=== PATIENT | female | born 1945 | race Caucasian/White ===

== ENCOUNTER 2018-10-17 16:54 | Emergency (ER) | payer OTHER, SELFPAY ==
[2018-10-17 17:05] VITALS: BP 132/81; PULSE 66; RESP 18; TEMP 36.8; O2SAT 99
--- NOTE | 2018-10-17 17:12 | PC.NURSE ---
pt c/o right arm pain. tripped and fell over [employer] bushes. causing injury. pt has lac, controlled bleeding.
--- NOTE | 2018-10-17 17:14 | DI.RAD.S_ITS ---
PROCEDURE: XR SHOULDER RT MIN 2V INDICATIONS: glf, rt wrist/forearm/shoulder pain TECHNIQUE: 2 views of the shoulder were acquired. COMPARISON: [facility], CR, XR CHEST 2 VIEWS, 04/21/2018, 14:01. FINDINGS: Bones: There is bony erosion or prior surgical resection of the distal right clavicle. No acute fracture dislocation. Visualized portions of the ribs are intact. Soft tissues: No suspicious soft tissue calcifications. IMPRESSION: No acute radiographic findings. If pain persists, repeat study in 5-7 days is recommended to exclude occult fracture. Dictated by: Deepthi Marks M.D. on 10/17/2018 at 17:50 Approved by: Deepthi Marks M.D. on 10/17/2018 at 17:51
--- NOTE | 2018-10-17 17:14 | DI.RAD.S_ITS ---
PROCEDURE: XR FOREARM RT 2V INDICATIONS: glf, rt wrist/forearm/shoulder pain TECHNIQUE: 2 views of the forearm were acquired. COMPARISON: None. FINDINGS: Bones: No fractures or dislocations. No suspicious bony lesions. Soft tissues: No suspicious soft tissue calcifications or masses. IMPRESSION: No acute radiographic findings. If pain persists, repeat study in 5-7 days is recommended to exclude occult fracture. Dictated by: Deepthi Marks M.D. on 10/17/2018 at 17:52 Approved by: Deepthi Marks M.D. on 10/17/2018 at 17:52
[2018-10-17] MEDS: ACETAMINOPHEN 325 MG TABLET 975 MG PO (17:44)
[2018-10-17] MEDS: TET,DIPH,PERTUSS(ACELL),VAC/PF 0.5 ML SYRINGE IM (17:44)
--- NOTE | 2018-10-17 17:54 | ED_ITS ---
HPI - Wound/Laceration <KATERINA Melendez - Last Filed: 10/18/18 00:41> General Chief Complaint: Wound/Laceration Stated Complaint: FALL RIGHT ARM INJURY LACERATION Time Seen by Provider: 10/17/18 17:14 Source: patient and family Mode of arrival: ambulatory Limitations: no limitations History of Present Illness HPI narrative: This is a pleasant 73 year female, nonsmoker, presents with spouse with injury to her right arm after fall. Patient reports she tripped over [employer] and fell on right arm. There was flap like laceration on right lateral forearm. She reports discomfort in anterior right shoulder and right forearm. She reports is able to move her right hand and fingers without difficulty and denies tingling or numbness. Patient reports pain increases with movement on her right shoulder. Right dominant hand. Unknown last tetanus immunization. She denies any other injuries including head, neck. Not currently on anticoagulants. Related Data Home Medications Medication Instructions Recorded Confirmed chlorthalidone 25 mg PO QDAY #30 tab 12/12/15 cyclobenzaprine 1 tab PO HSP PRN #0 12/12/15 tamsulosin [Flomax] 0.4 mg PO QAM #0 12/12/15 Previous Rx's Medication Instructions Recorded aspirin 81 mg PO QDAY #30 12/17/15 atenolol 50 mg PO HS #30 12/17/15 oxycodone 5 - 10 mg PO Q3HP PRN #60 tab 12/17/15 enoxaparin [Lovenox] 40 mg SQ QDAY #6 ea 12/19/15 Allergies Allergy/AdvReac Type Severity Reaction Status Date / Time adhesive [ADHESIVE] Allergy Severe CLEAR Verified 10/17/18 17:43 TAPE,DRESSING CAUSES RASH, INFECTION morphine [MORPHINE] AdvReac Severe VOMIT DRY Verified 10/17/18 17:43 HEAVES meperidine [From DEMEROL] AdvReac Intermediate VOMITING Verified 10/17/18 17:43 diazepam [From VALIUM] AdvReac Mild NAUSEA, Verified 10/17/18 17:43 DIARRHEA Review of Systems <KATERINA Melendez - Last Filed: 10/18/18 00:41> Review of Systems Narrative: General: Denies fever, chills, fatigue, malaise, sweats. HEENT: Denies sinus pain, ear pain, sore throat, difficulty swallowing, dizziness. Respiratory: Denies dyspnea, cough, wheezing, hemoptysis, sputum. Cardiovascular: Denies chest pain, palpitations, orthopnea, edema. Gastrointestinal: Denies nausea, vomiting, abdominal pain, diarrhea, constipation, melena. : Denies dysuria, frequency, incontinence, hematuria, urinary retention. Musculoskeletal: See HPI Skin: See HPI Neurologic: Denies weakness, headache, numbness, change in speech, confusion, seizures, incoordination. Psychiatric: No concerning psychosocial issues. 12-point review of systems is negative except for those stated above. PFSH <KATERINA Melendez - Last Filed: 10/18/18 00:41> Medical History Neck pain (Acute) Surgical History H/O cervical spine surgery (Acute) Social History Smoking Status: Never smoker Exam <KATERINA Melendez - Last Filed: 10/18/18 00:41> Narrative Exam Narrative: General appearance: well developed, well nourished, in no acute distress. Head: normocephalic, atraumatic, no scalp lesions, non-tender. Eye: pupil equal, round. EOMI. Nose: nares patent. Oral: mucosa moist. Neck/Thyroid: neck supple, full range of motion, no visible masses. Skin: Flap shape laceration to lateral right forearm without active bleeding. No suspicious rashes, lesions over visible areas. Warm and dry. Heart: no clubbing, no cyanosis, no edema. Lungs: Breathing even and unlabored. No stridor. No accessory muscles used. Chest: normal shape and expansion. Abdomen: non-obese, non-distended. Neurologic: alert and oriented. Cognitive exam, [employer]SEL[employer] and PNS grossly intact on informal exam. Psych: good eye contact, normal affect. Initial Vital Signs Initial Vital Signs: Vital Signs Temperature 98.3 F 10/17/18 17:05 Pulse Rate 66 10/17/18 17:05 Respiratory Rate 18 10/17/18 17:05 Blood Pressure 132/81 10/17/18 17:05 Pulse Oximetry 99 10/17/18 17:05 Extrem Right upper extremity: shoulder/upper arm Details: normal to inspection, tenderness, axillary nerve sensory function normal and abnormal ROM Details: pain with active ROM and pain with passive ROM; no swelling, no crepitus and no deformity, elbow/forearm Details: normal to inspection, tenderness, normal ROM and laceration (Lateral forearm, flap-like, 2.5 cm in each side), wrist Details: normal to inspection, normal ROM and radial pulse present; no tenderness and no swelling and hand Details: normal to inspection, normal capillary refill, neurosensory exam normal, tendon exam normal Location: of all digits and vascular exam Details: radial pulse present and normal capillary refill; no tenderness Left upper extremity: normal to inspection and full ROM Right lower extremity: normal to inspection and full ROM Left lower extremity: normal to inspection and full ROM <Freddy Lindsey DO - Last Filed: 10/25/18 19:16> Initial Vital Signs Initial Vital Signs: Vital Signs Temperature 98.3 F 10/17/18 17:05 Pulse Rate 66 10/17/18 17:05 Respiratory Rate 18 10/17/18 17:05 Blood Pressure 132/81 10/17/18 17:05 Pulse Oximetry 99 10/17/18 17:05 Procedures <KATERINA Melendez - Last Filed: 10/18/18 00:41> Laceration Repair Laceration 1: Site: upper extremity (Right lateral forearm) Side (If applicable): right Size (cm): 5 Description: flap (Triangular shaped) Depth: simple, single layer Local Anesthetic: lidocaine 1% and with bicarb Amount of anesthesia used (mL): 4 Pre-repair: wound explored and irrigated extensively Skin layer closed with: nylon Size (cm): 5-0 Number of sutures: 5 Technique: simple, interrupted Scores <KATERINA Melendez Last Filed: 10/18/18 00:41> GCS Dominga coma scale eye opening: Spontaneous Dominga coma scale verbal response: Orientated Dominga coma scale motor response: Obey commands Dominga coma scale total score: 15 Nexus Score for C-Spine Focal Neurologic deficit present: No Midline spinal tenderness present: No Altered level of conciousness present: No Intoxication present: No Distracting Injury Present: Yes Nexus Criteria for C-spine: 1 Course <KATERINA Melendez - Last Filed: 10/18/18 00:41> Orders Ordered: Discontinued Medications Acetaminophen (Tylenol) 975 mg PO NOW ONE Stop: 10/17/18 17:24 Last Admin: 10/17/18 17:44 Dose: 975 mg Documented by: TARIQ Bacitracin (Bacitracin) 1 applic TOP NOW ONE Stop: 10/17/18 18:25 Last Admin: 10/17/18 18:29 Dose: 1 applic Documented by: CANDIDOAPO Diphtheria/Tetanus/Acell Pertussis (Adacel) 0.5 ml IM .ONCE ONE Stop: 10/17/18 17:17 Last Admin: 10/17/18 17:44 Dose: 0.5 ml Documented by: ÁNGELAO Lidocaine/Sodium Bicarbonate (Buffered Lidocaine 10 Ml Syr) 10 ml INJ NOW ONE Stop: 10/17/18 18:25 Last Admin: 10/17/18 18:29 Dose: 10 ml Documented by: TARIQ Vital Signs Vital signs: Vital Signs - 8 hr 10/17/18 17:05 10/17/18 19:32 Temperature 98.3 F Pulse Rate 66 55 L Respiratory Rate 18 14 Blood Pressure 132/81 113/57 L Pulse Oximetry 99 97 <Freddy Lindsey DO - Last Filed: 10/25/18 19:16> Orders Ordered: Discontinued Medications Acetaminophen (Tylenol) 975 mg PO NOW ONE Stop: 10/17/18 17:24 Last Admin: 10/17/18 17:44 Dose: 975 mg Documented by: TARIQ Bacitracin (Bacitracin) 1 applic TOP NOW ONE Stop: 10/17/18 18:25 Last Admin: 10/17/18 18:29 Dose: 1 applic Documented by: CANDIDOAPO Diphtheria/Tetanus/Acell Pertussis (Adacel) 0.5 ml IM .ONCE ONE Stop: 10/17/18 17:17 Last Admin: 10/17/18 17:44 Dose: 0.5 ml Documented by: ÁNGELAO Lidocaine/Sodium Bicarbonate (Buffered Lidocaine 10 Ml Syr) 10 ml INJ NOW ONE Stop: 10/17/18 18:25 Last Admin: 10/17/18 18:29 Dose: 10 ml Documented by: TARIQ Vital Signs Vital signs: Vital Signs - 8 hr 10/17/18 17:05 10/17/18 19:32 Temperature 98.3 F Pulse Rate 66 55 L Respiratory Rate 18 14 Blood Pressure 132/81 113/57 L Pulse Oximetry 99 97 MDM - Wound/Laceration <Blayne Nataly-KATERINA Vasquez - Last Filed: 10/18/18 00:41> Differential Diagnosis Differential diagnosis: Likely laceration, avulsion of skin and other (contusion of R arm) Medical Records Attestation: I reviewed the patient's medical records. Imaging Data XR Shoulder-RT: Radiologist's impression: [address] [address] XRay Report Signed Patient: Janie Santoyo [facility]#: [id number] : 7Acct:[id number] Age/Sex: 73 / FDate of Service: 10/17/18 Loc: ED Accession Number: [id number] Procedure: XR shoulder RT min 2V Ordering Provider: Freddy Lindsey D.O. PROCEDURE: XR SHOULDER RT MIN 2V INDICATIONS: glf, rt wrist/forearm/shoulder pain TECHNIQUE: 2 views of the shoulder were acquired. COMPARISON: [facility], , XR CHEST 2 VIEWS, 04/21/2018, 14:01. FINDINGS: Bones: There is bony erosion or prior surgical resection of the distal right clavicle. No acute fracture dislocation. Visualized portions of the ribs are intact. Soft tissues: No suspicious soft tissue calcifications. IMPRESSION: No acute radiographic findings. If pain persists, repeat study in 5-7 days is recommended to exclude occult fracture. Dictated by: Deepthi Marks M.D. on 10/17/2018 at 17:50 Approved by: Deepthi Marks M.D. on 10/17/2018 at 17:51 XR- Forearm RT: Radiologist's impression: [address] [address] XRay Report Signed Patient: Janie Santoyo [facility]#: [id number] : 7Acct:[id number] Age/Sex: 73 / FDate of Service: 10/17/18 Loc: ED Accession Number: [id number] Procedure: XR forearm RT 2V Ordering Provider: Freddy Lindsey D.O. PROCEDURE: XR FOREARM RT 2V INDICATIONS: glf, rt wrist/forearm/shoulder pain TECHNIQUE: 2 views of the forearm were acquired. COMPARISON: None. FINDINGS: Bones: No fractures or dislocations. No suspicious bony lesions. Soft tissues: No suspicious soft tissue calcifications or masses. IMPRESSION: No acute radiographic findings. If pain persists, repeat study in 5-7 days is recommended to exclude occult fracture. Dictated by: Deepthi Marks M.D. on 10/17/2018 at 17:52 Approved by: Deepthi Marks M.D. on 10/17/2018 at 17:52 [facility] Narrative Medical decision making narrative: This patient had a mechanical fall sustaining injury to her right arm with a laceration on lateral forearm. Tetanus immunization was updated today. X-ray was done on right shoulder and forearm due to pain on palpation, active range of motion and passive range of motion. X-ray test shows no acute findings including fractures, dislocations, joint effusion. Laceration has repaired by suture. Please see procedural note. Return precautions were discussed with the patient including signs and symptoms for infection. Patient advised to follow with her primary care physician for wound recheck in 2 days. Suture removal in 7-10 days. Patient advised to use RICE therapy and [id number] Tylenol and or Motrin as needed for discomfort and inflammation. No head CT or neck CT was obtained due to patient did not exhibited any neurological deficit, patient denies injury to head or neck. Patient agrees with treatment plan and no further questions were expressed at this time. Discharge Plan Departure Patient Disposition: Home Clinical Impression: Laceration Contusion Qualifiers: Encounter type: initial encounter Contusion area: upper arm Laterality: right Qualified Code(s): S40.021A - Contusion of right upper arm, initial encounter Fall Qualifiers: Encounter type: initial encounter Qualified Code(s): W19.XXXA - Unspecified fall, initial encounter Discharge Date/Time: 10/17/18 19:32 Activity Restrictions/Additional Instructions: You have been diagnosed with [fall, laceration to right forearm, contusion to right shoulder. The x-ray test on right shoulder and forearm were negative and no acute findings such as fracture, dislocation.]. What to do: *Take your medications as directed. You can take [id number] Tylenol and/or Motrin as needed for discomfort and inflammation. You can use ice pack for next couple of days. Please do not get your wound soaked in the water until suture removal. Keep your dressing intact for next 24 hrs. After then, you could remove your dressing, wash with soap and water. Pat dry with clean paper towel and dress it with antibiotic ointment. You can change dressing as needed and daily. Please monitor for signs and symptoms for infection such as increasing redness, swelling, warmth, pain, fever, purulent discharge. If this occurs, please return to ED or follow up with your primary care physician since your wound may be gotten infected. Please follow up with your primary care provider in 2-3 days for recheck wound. Your suture should be removed [ 7-10 ] days. This can be done by your primary provider, walk-in clinic or here in ED. Please keep your wound clean, dry and intact all times. *Follow up with your primary care provider in 2-3 days, call for an appointment. Let them know you were seen in the ED and that we asked you to be seen in follow up. *Return to ED if you have any new, worsening, or concerning symptoms, such as [tingling, numbness, weakness to right arm and signs and symptoms for infection as stated above]. Prescriptions: No Action chlorthalidone 25 MG tablet 25 mg PO QDAY Qty: 30 RF: 0 cyclobenzaprine 5 MG tablet 1 tab PO HSP PRNQty: 0 RF: 0 tamsulosin [Flomax] 0.4 MG capsule,extended release 24hr 0.4 mg PO QAM Qty: 0 RF: 0 aspirin 81 MG tablet,delayed release (DR/EC) 81 mg PO QDAY Qty: 30 RF: 0 atenolol 50 MG tablet 50 mg PO HS Qty: 30 RF: 0 oxycodone 5 MG tablet 5 - 10 mg PO Q3HP PRNQty: 60 RF: 0 enoxaparin [Lovenox] 40 MG/0.4 ML syringe 40 mg SQ QDAY Qty: 6 RF: 0 Referrals: Jeny Baker MD [Primary Care Provider] - <Freddy Lindsey DO - Last Filed: 10/25/18 19:16> Sign Out Provider Sign Out Attestation: I was available for consultation during this patient's emergency department encounter
[2018-10-17] MEDS: LIDO 1%/SOD BICARB 8.4% (10ML) 10 ML SYRINGE INJ (18:29)
[2018-10-17] MEDS: BACITRACIN OINT 0.9 GM PCKT 1 APPLIC TOP (18:29)
[2018-10-17 19:32] VITALS: BP 113/57; PULSE 55; RESP 14; O2SAT 97
== END 2018-10-17 19:32 | disposition home or self-care (01) ==
PROVIDERS: Emergency Provider Nurse Practitioner Family; PCP Family Medicine
DX: S51.811A Laceration without foreign body of right forearm, initial encounter (principal); W01.0XXA Fall on same level from slipping, tripping and stumbling without subsequent striking against object, initial encounter
CPT/HCPCS: 12002; 73030; 73090; 90471; 99283; 90715

== ENCOUNTER → 2019-08-08 13:09 | Outpatient (CLI) | payer OTHER, SELFPAY ==
--- NOTE | 2019-08-08 | DI.MRI.S_ITS ---
PROCEDURE: MR LUMBAR SPINE WO CON INDICATIONS: Low back pain TECHNIQUE: Noncontrast sagittal T1 spin echo and T2 fast echo, sagittal STIR, axial T1 and T2 fast spin echo through the lumbar spine. In cases with scoliosis, additional coronal T2 fast spin echo may be performed. COMPARISON: [facility], , [id number] W PEL IF PERFORMED, 12/15/2015, 14:56. FINDINGS: Image quality: Excellent. Alignment and Curvature: Moderate dextroconvex lumbar scoliosis is seen. There is minimal retrolisthesis seen at L2-L3, L3-L4, L4-L5, and L5-S1. Bone Marrow: Marrow is of normal overall signal. No acute vertebral body compression fractures. Spinal Cord: Conus medullaris terminates at the L1 level. Visualized cord demonstrates normal signal and size. Paraspinous Soft Tissues: No paravertebral masses. This patient has transitional lumbar anatomy. For the purposes of this examination, the level with the last well-developed pair of ribs is considered to be T12. By this numbering scheme, the S1 level is transitional and partially lumbarized. T12-L1: Moderate loss of disc height is seen. Loss of disc signal is seen. Bridging endplate osteophytes are seen. Mild to moderate disc bulge is seen. No significant neural foraminal or central canal narrowing can be seen. L1-L2: Moderate loss of disc height is seen. Loss of disc signal is seen. Mild to moderate disc bulge is seen. At least moderate facet hypertrophy is seen. There is moderate left-sided and mild right-sided neural foraminal narrowing seen. Mild central canal narrowing is seen. L2-L3: Moderate to severe loss of disc height and disc signal are seen. Reactive marrow endplate changes are seen, which are hyperintense on T1-weighted and T2-weighted imaging and most consistent with fatty metaplasia (Modic type II changes). Bridging endplate osteophytes are seen, particularly on the left. Mild facet joint hypertrophy is seen. There is moderate to severe left-sided and mild to moderate right-sided neural foraminal narrowing seen. Moderate central canal narrowing is seen. L3-L4: Moderate to severe loss of disc height and disc signal can be seen on the left. Relatively prominent bridging endplate osteophytes are seen on the left. Moderate facet joint hypertrophy is seen. Moderate bilateral neural foraminal narrowing is seen, left worse than right. Moderate central canal narrowing is seen. L4-L5: Moderate to severe loss of disc height is seen on the left side. Bridging endplate osteophytes are seen on the left. At least moderate facet hypertrophy is seen. There is moderate right-sided and moderate to severe left-sided neural foraminal narrowing seen. There is a compression deformity seen at L4 nerve root. L5-S1: At least moderate loss of disc height is seen on the right. Bridging endplate osteophytes are seen on the right. Moderate to prominent facet hypertrophy is seen. There is at least moderate left-sided and moderate to severe right-sided neural foraminal narrowing seen. There has been removal of portions of the posterior elements, with left hemilaminectomy. The central canal is widely patent. S1-S2: A transitional disc is seen at this level. No significant neural foraminal or central canal narrowing can be seen. IMPRESSION: Dextroconvex scoliosis and multiple levels of relatively prominent degenerative change. Prior left hemilaminectomy change at L5-S1. Transitional lumbar anatomy. Dictated by: Alexandru Taylor M.D. on 08/08/2019 at 15:03 Approved by: Alexandru Taylor M.D. on 08/08/2019 at 15:09
== END ==
PROVIDERS: PCP Family Medicine; Referring Provider Family Medicine; Visit Provider Orthopaedic Surgery
DX: M54.5 Low back pain (principal); M41.86 Other forms of scoliosis, lumbar region
CPT/HCPCS: 72148

== ENCOUNTER → 2020-08-01 13:24 | Outpatient (CLI) | payer OTHER, SELFPAY ==
--- NOTE | 2020-08-01 | DI.MRI.S_ITS ---
PROCEDURE: MR ANKLE LT WO CON INDICATIONS: Achilles tendinitis, left leg TECHNIQUE: Noncontrast sagittal T1 spin echo and T2 fast spin echo with fat saturation, axial proton density fast spin echo and T2 fast spin echo with fat saturation, coronal T1 spin echo and T2 fast spin echo with fat saturation through the ankle/hindfoot. COMPARISON: [facility], CR, XR FOOT 3+ VIEWS LEFT, 09/11/2019, 14:45. FINDINGS: Image quality: Diagnostic. Bones and joints: No bone marrow contusions or fractures. No hindfoot coalitions. No osteochondral lesions of the talar dome. There are degenerative changes in the including mild degeneration along the subtalar joint with subchondral edema and osteophytosis. There is degeneration along the distal tibiofibular syndesmosis with syndesmotic narrowing, subchondral edema, and subchondral cystic changes. Moderate degenerative changes are also demonstrated in the midfoot with osteophytosis, cartilage thinning, and multiple foci of subchondral edema throughout the midfoot. No pathologic joint effusions. There is mild nonspecific periarticular subcutaneous edema. Medial structures: The posterior tibialis, flexor digitorum longus, and flexor hallucis longus tendons are intact. The posterior tibial neurovascular bundle appears normal within the tarsal tunnel, without extrinsic mass effect. The deltoid and spring ligament components appear intact. Lateral structures: The anterior talofibular, calcaneofibular, and posterior talofibular ligaments appear attenuated consistent with sequelae of prior moderate to severe sprains. More superiorly, the anterior and posterior tibiofibular ligaments also appear thickened consistent with sequelae of prior sprains. The intermalleolar ligament appears intact. The tibiofibular syndesmosis demonstrates narrowing with mild osteophytosis consistent with degenerative changes. There is an accessory peroneal tendon consistent with a peroneus quartus tracking posterior to the peroneus brevis along the lateral malleolus and extending medially along the peroneus longus. The insertion is not well visualized on the current study. There is mild tendinopathy of the peroneus longus inferior to the lateral malleolus. A small amount of tenosynovial fluid is demonstrated along the peroneal tendons. Adjacent bony peroneal tubercle and retrotrochlear prominence are normal in size. The sinus tarsi demonstrates effacement of the fatty signal without associated edema cystic change. Findings likely represent sequelae of prior ligamentous sprains. The calcaneonavicular and calcaneocuboid components of the bifurcate ligament appear intact. The dorsal calcaneocuboid ligament appears intact. Anterior structures: The tibialis anterior, extensor hallucis longus, and extensor digitorum longus tendons appear intact. The dorsal talonavicular ligament is attenuated in signal consistent with sequelae of a sprain or chronic degeneration. Posterior and plantar structures: Achilles tendon demonstrates mild tendinosis with mild intrasubstance intermediate signal suggestive of mild interstitial partial tearing. No high-grade tear or tendon rupture. Medial and lateral bands of the plantar fascia are of normal thickness without associated edema. No abductor digiti quinti muscle atrophy to suggest Chua neuropathy. IMPRESSION: 1. Mild tendinosis of the Achilles tendon with suspected mild interstitial partial tearing. No high-grade tear or tendon rupture. 2. Moderate degeneration in the midfoot as well as mild degeneration along the subtalar joint and along the distal tibiofibular syndesmosis. 3. Sequelae of prior sprains of the lateral ankle ligaments as described. 4. Accessory peroneus quartus tendon demonstrated with mild tenosynovitis along the peroneal tendons. Segmental tendinopathy of the peroneus longus also noted inferior to the lateral malleolus. Dictated by: Juaquin Thrasher M.D. on 08/01/2020 at 16:41 Approved by: Juaquin Thrasher M.D. on 08/01/2020 at 16:58
== END ==
PROVIDERS: PCP Nurse Practitioner Family; Referring Provider Orthopaedic Surgery Foot and Ankle Surgery; Visit Provider Orthopaedic Surgery Foot and Ankle Surgery
DX: M76.62 Achilles tendinitis, left leg (principal); M19.072 Primary osteoarthritis, left ankle and foot; M65.872 Other synovitis and tenosynovitis, left ankle and foot
CPT/HCPCS: 73721

== ENCOUNTER → 2020-08-06 10:45 | Outpatient (CLI) | payer OTHER, SELFPAY ==
[2020-08-06 11:22] LABS: Hematocrit 36.9 % (36-46); Hemoglobin 12.4 g/dL (12.0-16.0); Mean Corpuscular HGB Conc 33.6 % (30-36); Mean Corpuscular Hemoglobin 31.4 PG (26-34); Mean Corpuscular Volume 93.7 fL (80-100); Platelet Count 191 X10^3/uL (150-400); Red Blood Cell Count 3.94 X10^6/uL (4.0-5.2); White Blood Cell Count 4.5 X10^3/uL (4.5-11.0)
[2020-08-06 11:34] LABS: Alanine Aminotransferase 22 IU/L (<35); Albumin 4.1 g/dL (3.5-5.0); Albumin Globulin Ratio 1.5 (1.0-2.8); Alkaline Phosphatase 73 U/L (38-126); Aspartate Aminotransferase 28 IU/L (14-36); BUN Creatinine Ratio 29.7 (6-22); Bilirubin Total 0.9 mg/dL (0.2-1.3); Blood Urea Nitrogen 19 mg/dL (7-17); Calcium 9.8 mg/dL (8.4-10.2); Carbon Dioxide 32 mmol/L (22-32); Chloride 103 mmol/L (98-107); Cholesterol 172 mg/dL (140-199); Estimated Glomerular Filt Rate > 60.0 mL/min (>60); Globulin 2.7 g/dL (1.7-4.1); Glucose 110 mg/dL (80-110); HDL Cholesterol 66 mg/dL (40-60); HEMOLYSIS < 15 (0-50); LDL Cholesterol Calculated 88 mg/dL (<100); Potassium 3.9 mmol/L (3.4-5.1); Sodium 140 mmol/L (137-145); Total Protein 6.8 g/dL (6.3-8.2); Triglycerides 90 mg/dL (35-150)
[2020-08-06 12:12] LABS: Free T4, Direct Thyroxine 1.06 ng/dL (0.78-2.19)
[2020-08-06 12:25] LABS: Thyroid Stimulating Hormone 0.319 uIU/mL (0.47-4.68)
== END ==
PROVIDERS: PCP Nurse Practitioner Family; Referring Provider Nurse Practitioner Family; Visit Provider Nurse Practitioner Family
DX: Z00.00 Encounter for general adult medical examination without abnormal findings (principal); I10 Essential (primary) hypertension; E03.9 Hypothyroidism, unspecified; E78.5 Hyperlipidemia, unspecified
CPT/HCPCS: 36415; 80053; 80061; 84439; 84443; 85027

== ENCOUNTER → 2020-11-05 15:16 | Outpatient (CLI) | payer OTHER, SELFPAY ==
[2020-11-05 16:52] LABS: Free T4, Direct Thyroxine 1.02 ng/dL (0.78-2.19)
[2020-11-05 17:06] LABS: Thyroid Stimulating Hormone 0.905 uIU/mL (0.47-4.68)
== END ==
PROVIDERS: PCP Nurse Practitioner Family; Referring Provider Nurse Practitioner Family; Visit Provider Nurse Practitioner Family
DX: E03.9 Hypothyroidism, unspecified (principal)
CPT/HCPCS: 36415; 84439; 84443

== ENCOUNTER → 2020-11-26 15:52 | Outpatient (CLI) | payer OTHER, SELFPAY ==
--- NOTE | 2020-11-26 15:54 | DI.RAD.S_ITS ---
PROCEDURE: XR CERVICAL SPINE 2V OR 3V INDICATIONS: muscle tightness, pain, hx of surgery TECHNIQUE: 3 view(s) of the cervical spine were acquired. COMPARISON: [facility], CR, XR CERVICAL SPIN LAT FL EX 3VW, 10/09/2015, 12:40. FINDINGS: Bones: No fractures or dislocations to the C7-T1 level. The lateral masses of C1 appear intact on the odontoid view. No suspicious bony lesions. Cervical straightening is present. There is cervical fusion from C3 through C7. Multilevel uncovertebral hypertrophy are present. Hardware is intact. Soft tissues: No prevertebral soft tissue swelling. IMPRESSION: Cervical straightening with anterior fusion as above. Dictated by: Steffany Thakur M.D. on 11/26/2020 at 16:54 Approved by: Steffany Thakur M.D. on 11/26/2020 at 16:55
[2020-11-26 16:18] LABS: Hematocrit 38.4 % (36-46); Hemoglobin 12.6 g/dL (12.0-16.0); Mean Corpuscular HGB Conc 32.7 % (30-36); Mean Corpuscular Hemoglobin 30.9 PG (26-34); Mean Corpuscular Volume 94.5 fL (80-100); Platelet Count 206 X10^3/uL (150-400); Red Blood Cell Count 4.06 X10^6/uL (4.0-5.2); Red Cell Distribution Width 14.3 % (11.6-14.8)
[2020-11-26 16:57] LABS: HEMOLYSIS < 15 (0-50)
[2020-11-26 17:05] LABS: Alanine Aminotransferase 19 IU/L (<35); Albumin 4.2 g/dL (3.5-5.0); Albumin Globulin Ratio 1.7 (1.0-2.8); Alkaline Phosphatase 76 U/L (38-126); Aspartate Aminotransferase 25 IU/L (14-36); BUN Creatinine Ratio 16.9 (6-22); Bilirubin Total 1.1 mg/dL (0.2-1.3); Blood Urea Nitrogen 12 mg/dL (7-17); Calcium 10.3 mg/dL (8.4-10.2); Carbon Dioxide 34 mmol/L (22-32); Chloride 100 mmol/L (98-107); Estimated Glomerular Filt Rate > 60.0 mL/min (>60); Globulin 2.5 g/dL (1.7-4.1); Glucose 91 mg/dL (80-110); Potassium 3.9 mmol/L (3.4-5.1); Sodium 139 mmol/L (137-145); Total Protein 6.7 g/dL (6.3-8.2)
[2020-11-26 17:52] LABS: Vitamin B12 Reflex MMA if <400 > 1000 pg/mL (239-931)
== END ==
PROVIDERS: PCP Nurse Practitioner Family; Referring Provider Nurse Practitioner Family; Visit Provider Nurse Practitioner Family
DX: Z00.00 Encounter for general adult medical examination without abnormal findings (principal); M54.2 Cervicalgia; Z98.890 Other specified postprocedural states; R42 Dizziness and giddiness
CPT/HCPCS: 36415; 72040; 80053; 82607; 85027

== ENCOUNTER → 2021-02-11 09:33 | Outpatient (CLI) | payer OTHER, SELFPAY ==
[2021-02-11 10:23] LABS: COVID19 -Nasal RAPID Negative (Negative)
== END ==
PROVIDERS: PCP Nurse Practitioner Family; Visit Provider Surgery
DX: Z01.812 Encounter for preprocedural laboratory examination (principal); Z20.822 Contact with and (suspected) exposure to COVID-19
CPT/HCPCS: 87635; C9803

== ENCOUNTER 2021-02-12 07:29 | Day surgery (SDC) | payer OTHER, SELFPAY ==
--- NOTE | 2021-02-12 | PATH_ITS ---
[facility] Accession Number: [id number] . 01 Material submitted: . colon - TRANSVERSE COLON POLYP . 02 Diagnosis: Transverse Colon Polyp, Biopsy: Sessile serrated adenoma. [facility] 02/17/2021 1627 Local . 02 Electronically signed: . Travis Haider MD, PhD, Pathologist NPI- [id number] . 01 Gross description: . TRANSVERSE COLON POLYP: Received in formalin are 2 fragment(s) of yang, soft tissue measuring 0.2 x 0.1 x 0.1 cm to 0.3 x 0.3 x 0.2 cm submitted entirely in 1 cassette(s) /YUE 02/13/2021 0058 Local . 02 Pathologist provided ICD-10: D12.3 . 02 CPT . 441122 Performed at: 01 [facility] [address] [place] [address], [place], [place] [id number] MD Juaquin Massey MD Phone: [phone] Performed at: 02 [facility] [address] [address] [place], [place] [id number] MD Hayde Monge MD Phone: [phone]
[2021-02-12] MEDS: LACTATED RINGERS 1,000 ML 84 ML IV (07:54)
[2021-02-12 07:57] VITALS: BP 119/76; PULSE 73; RESP 18; TEMP 36.4; O2SAT 98; BMI 34.5
--- NOTE | 2021-02-12 08:37 | PM.HP.1 ---
History of Present Illness History of Present Illness Date Patient Seen: 02/12/21 Time Patient Seen: 08:37 Chief complaint: PAC Narrative: 75-year-old woman who had a colonoscopy 5 years ago with polyps and was told to repeat her colonoscopy this year. Patient History Medical History (Updated 02/12/21 @ 08:39 by Dewayne Quintero MD) AAA (abdominal aortic aneurysm) (~2015) Ankle pain Anxiety Carpal tunnel syndrome Cervical (neck) region somatic dysfunction (1997) Chicken pox Chronic back pain Chronic pain in left foot Colon polyps Dysphagia (10/2020) Foot pain History of urinary incontinence (~2015) Insomnia Intermittent lightheadedness (09/2020) Lower urinary tract symptoms (LUTS) Lumbar back pain with radiculopathy affecting left lower extremity Measles Migraine with aura (1959) Mumps Neck pain Neck pain Osteopenia Peripheral vascular disease Postmenopausal atrophic vaginitis Postmenopausal atrophic vaginitis PTSD (post-traumatic stress disorder) (~2016) Scoliosis Shoulder pain Surgical History Anesthesia H/O cervical spine surgery H/O knee surgery H/O: hysterectomy History of ankle surgery History of appendectomy History of fusion of cervical spine (2015) History of hip surgery Previous back surgery S/P hernia surgery Family & Social History Family History Father History of heart disease Hypertension Mother History of heart disease Hypertension Brother History of heart disease Hypertension Grandfather Stroke Grandfather History of heart disease Social History: household members spouse Tobacco & Substance use: Smoking Status Former smoker alcohol intake current alcohol intake frequency holiday/special occasion Substance Use Type does not use Meds Home Medications and Allergies Home Medications Medication Instructions Recorded Confirmed Type aspirin 81 mg tablet,delayed 81 mg PO QDAY #30 12/17/15 02/12/21 Rx release gabapentin 300 mg capsule 300 mg PO DAILY 10/12/19 02/12/21 History simvastatin 40 mg tablet 40 mg PO DAILY 10/12/19 02/12/21 History cranberry 500 mg capsule 500 mg PO BID 10/17/19 02/12/21 History vitamin B complex (B 1 tab PO DAILY 10/17/19 02/12/21 History Complex-Vitamin B12) diclofenac sodium 1 % topical gel 2 g TOPICAL QID PRN 07/01/20 02/12/21 History sumatriptan succinate 50 mg tablet 50 mg PO ONCE #30 tab 09/17/20 02/12/21 Rx estradiol (Estrace) 1 g VAG 2XW #42.5 gram 11/05/20 02/12/21 Rx atenolol 25 mg tablet 25 mg PO BID #180 tab 01/01/21 02/12/21 Rx chlorthalidone 25 mg tablet 25 mg PO QDAY #90 tab 01/01/21 02/12/21 Rx cyclobenzaprine 5 mg tablet 5 mg PO BID PRN #90 tab 01/01/21 02/12/21 Rx levothyroxine 25 mcg capsule 25 mcg PO DAILY #90 cap 01/01/21 02/12/21 Rx trazodone 50 mg tablet 100 mg PO DAILY #180 tab 01/01/21 02/12/21 Rx Allergies Allergy/AdvReac Type Severity Reaction Status Date / Time adhesive [ADHESIVE] Allergy Severe CLEAR Verified 02/12/21 07:42 TAPE,DRESSING CAUSES RASH, INFECTION morphine [MORPHINE] AdvReac Severe VOMIT DRY Verified 02/12/21 07:42 HEAVES meperidine [From DEMEROL] AdvReac Intermediate VOMITING Verified 02/12/21 07:42 diazepam [From VALIUM] AdvReac Mild NAUSEA, Verified 02/12/21 07:42 DIARRHEA Exam Vital Signs (past 8 hours): - 02/12/21 07:57 Temperature 97.5 F L Pulse Rate 73 Respiratory Rate 18 Blood Pressure 119/76 Pulse Oximetry 98 Oxygen Delivery Method Room Air Const General: comfortable Eyes General: appearance normal, both eyes and all related structures Resp Effort & Inspection: normal respiratory effort Assessment & Plan Assessment and plan (1) History of colon polyps: Status: Acute Plan She took her prep appropriately. She is aware the risks and benefits. She would like to proceed. Time Spent With Patient Critical Care time: I spent a total of [] minutes of critical care time on this patient's care today; this time is exclusive of procedural time.
[2021-02-12] MEDS: fentaNYL 250 MCG/5 ML INJ IV (09:16)
[2021-02-12] MEDS: MIDAZOLAM 5 MG/5 ML VIAL IV (09:46)
--- NOTE | 2021-02-12 09:57 | PM.OP.COLON ---
Operative Date/Time/Diagnoses Date of procedure: 02/12/21 Time of procedure: 10:01 Pre-op diagnosis: History of colon polyps Post-op diagnosis: same Procedure & Clinicians Study performed: Colonoscopy Same procedure as scheduled: Yes Indications: History of colon polyps Surgeon: Dewayne Quintero Procedure Notes SCOAP/Timeout: Yes Procedure in detail: Procedure: The patient was brought to the endoscopy suite, placed in left lateral decubitus position. The patient was connected to monitoring devices. A time-out was performed. Sedation was administered. Once the patient was adequately sedated, a digital rectal exam was performed and was normal. The scope was then inserted and advanced to the cecum where the appendiceal orifice was identified and photographed. The scope was then slowly withdrawn over greater than 6 minutes. Mucosa was thoroughly inspected. There were a few areas with old ink spots. There was 1 area with an ink spot in the transverse colon that had a small polyp adjacent to the ink. The polyp was roughly 5 mm. This polyp was removed with Jumbo forceps. There was pandiverticulosis, greatest in the sigmoid colon. The scope was retroflexed in the rectum. Moderate internal hemorrhoids were noted. The scope was straightened and removed. The patient was awakened and brought to recovery. Versed: 13 mg Fentanyl: 250 mcg EBL: 2 mL Findings: Small transverse colon polyp and pandiverticulosis. Scope withdrawal time: 29 Sedation minutes: 71 Findings: divertiulosis and polyp(s) Post-procedure Recommendations: Will call with biopsy results Disposition: PACU
[2021-02-12 09:59] VITALS: BP 121/55; PULSE 63; RESP 12; TEMP 36.8; O2SAT 100
[2021-02-12 10:04] VITALS: BP 115/54; PULSE 66; RESP 12
[2021-02-12 10:09] VITALS: BP 122/58; PULSE 58; RESP 12; O2SAT 98
[2021-02-12 10:10] VITALS: BP 108/78; PULSE 76; RESP 16; TEMP 36.4; O2SAT 98
== END 2021-02-12 10:20 | disposition home or self-care (01) ==
PROVIDERS: PCP Nurse Practitioner Family; Referring Provider Surgery; Visit Provider Surgery
PROC: 0DJD8ZZ Inspection of Lower Intestinal Tract, Via Natural or Artificial Opening Endoscopic (ICD-10-PCS; CPT 45378; principal; 2021-02-12 08:30)
DX: Z12.11 Encounter for screening for malignant neoplasm of colon (principal); Z86.010 Personal history of colon polyps; K64.8 Other hemorrhoids; K57.30 Diverticulosis of large intestine without perforation or abscess without bleeding
CPT/HCPCS: 45380; 99152; 99153; J2250; J3010

== ENCOUNTER → 2021-02-26 11:30 | Outpatient (CLI) | payer OTHER, SELFPAY ==
--- NOTE | 2021-02-26 11:31 | DI.RAD.S_ITS ---
PROCEDURE: XR HIP W PEL IF DONE LT 2V INDICATIONS: hip pain TECHNIQUE: AP pelvis with lateral view(s) of the left hip acquired. COMPARISON: None. FINDINGS: Bones: [id number] osteoarthritic degenerative changes noted in the left hip. Patient is status post right hip arthroplasty, with hardware components in expected positions. The hip joint appears congruent. The visualized bony structures appear intact. Soft tissues: Overlying postoperative changes are noted. No suspicious soft tissue densities. IMPRESSION: 1. Expected postsurgical change for right hip arthroplasty. 2. Mild to moderate left hip osteoarthritis. Dictated by: Adenike Andujar MD, PhD on 02/26/2021 at 15:53 Approved by: Adenike Andujar MD, PhD on 02/26/2021 at 15:54
== END ==
PROVIDERS: PCP Nurse Practitioner Family; Referring Provider Nurse Practitioner Family; Visit Provider Nurse Practitioner Family
DX: M16.12 Unilateral primary osteoarthritis, left hip (principal); Z96.641 Presence of right artificial hip joint
CPT/HCPCS: 73502

== ENCOUNTER → 2021-05-26 11:04 | Outpatient (CLI) | payer OTHER, SELFPAY ==
[2021-05-26 11:34] LABS: Hematocrit 38.3 % (36-46); Hemoglobin 12.9 g/dL (12.0-16.0); Mean Corpuscular HGB Conc 33.8 % (30-36); Mean Corpuscular Hemoglobin 31.3 PG (26-34); Mean Corpuscular Volume 92.8 fL (80-100); Platelet Count 213 X10^3/uL (150-400); Red Blood Cell Count 4.13 X10^6/uL (4.0-5.2); Red Cell Distribution Width 14.6 % (11.6-14.8); White Blood Cell Count 4.6 X10^3/uL (4.5-11.0)
[2021-05-26 12:59] LABS: Alanine Aminotransferase 21 IU/L (<35); Albumin 4.3 g/dL (3.5-5.0); Albumin Globulin Ratio 1.5 (1.0-2.8); Alkaline Phosphatase 63 U/L (38-126); Aspartate Aminotransferase 26 IU/L (14-36); BUN Creatinine Ratio 17.8 (6-22); Bilirubin Total 0.9 mg/dL (0.2-1.3); Blood Urea Nitrogen 13 mg/dL (7-17); Calcium 9.6 mg/dL (8.4-10.2); Carbon Dioxide 34 mmol/L (22-32); Chloride 101 mmol/L (98-107); Cholesterol 154 mg/dL (140-199); Estimated Glomerular Filt Rate > 60.0 mL/min (>60); Globulin 2.9 g/dL (1.7-4.1); Glucose 95 mg/dL (80-110); HDL Cholesterol 68 mg/dL (40-60); HEMOLYSIS < 15 (0-50); LDL Cholesterol Calculated 58 mg/dL (<100); Potassium 3.7 mmol/L (3.4-5.1); Sodium 143 mmol/L (137-145); Total Protein 7.2 g/dL (6.3-8.2); Triglycerides 141 mg/dL (35-150)
[2021-05-26 13:25] LABS: Thyroid Stimulating Hormone 0.799 uIU/mL (0.47-4.68)
--- NOTE | 2021-05-26 14:19 | DI.RAD.S_ITS ---
PROCEDURE: XR KNEE RT 3V INDICATIONS: ongoing pain TECHNIQUE: 3 views of the knee were acquired. COMPARISON: None. FINDINGS: Bones: No fractures or dislocations. No suspicious bony lesions. Bulky tricompartment osteophytes. Numerous intra-articular bodies. Soft tissues: No joint effusion. No suspicious soft tissue calcifications. IMPRESSION: Bulky tricompartment osteophytes and numerous intra-articular bodies. Dictated by: Sher Valadez M.D. on 05/26/2021 at 15:59 Approved by: Sher Valadez M.D. on 05/26/2021 at 15:59
--- NOTE | 2021-05-26 14:19 | DI.RAD.S_ITS ---
PROCEDURE: XR KNEE LT 3V INDICATIONS: ongoing pain TECHNIQUE: 3 views of the knee were acquired. COMPARISON: [facility], CR, XR KNEE RT 3V, 05/26/2021, 14:09. FINDINGS: Bones: No acute fracture or dislocation. Tricompartment osteophytes. Intra-articular bodies. Soft tissues: No joint effusion. No suspicious soft tissue calcifications. IMPRESSION: Tricompartment osteophytes and intra-articular bodies. Dictated by: Sher Valadez M.D. on 05/26/2021 at 15:59 Approved by: Sher Valadez M.D. on 05/26/2021 at 16:00
== END ==
PROVIDERS: PCP Nurse Practitioner Family; Referring Provider Nurse Practitioner Family; Visit Provider Nurse Practitioner Family
DX: Z00.00 Encounter for general adult medical examination without abnormal findings (principal); E03.9 Hypothyroidism, unspecified; E78.2 Mixed hyperlipidemia; I10 Essential (primary) hypertension; M25.561 Pain in right knee; M25.562 Pain in left knee
CPT/HCPCS: 36415; 73562; 80053; 80061; 84439; 84443; 85027

== ENCOUNTER → 2021-09-30 09:47 | Outpatient (CLI) | payer OTHER, SELFPAY ==
--- NOTE | 2021-09-30 | DI.US.S_ITS ---
PROCEDURE: US RETROPERITONEAL COMP INDICATIONS: HISTORY OF ABDOMINAL AORTIC ANERUYSM TECHNIQUE: Real-time scanning was performed of the retroperitoneal organs, with image documentation. COMPARISON: None. FINDINGS: Proximal aorta measures 2.3 x 2.3 cm. The mid aorta measures 3.8 x 4.1 cm, previously 3.3 x 3.5 cm. The distal aorta measures 1.5 x 1.5 cm. Right and left common iliac arteries measure 1.9 cm in diameter each IMPRESSION: 1. Infrarenal abdominal aortic aneurysm is slightly increased in size from 2016 Approved by: Toro Durbin M.D. on 09/30/2021 at 14:39
== END ==
PROVIDERS: PCP Pediatrics; Referring Provider Pediatrics; Visit Provider Pediatrics
DX: R13.10 Dysphagia, unspecified (principal); I10 Essential (primary) hypertension; E03.9 Hypothyroidism, unspecified; E78.5 Hyperlipidemia, unspecified; I71.4 Abdominal aortic aneurysm, without rupture
CPT/HCPCS: 36415; 76770; 80053; 80061; 82043; 82570; 84443; 85025

== ENCOUNTER → 2021-09-30 10:46 | Outpatient (CLI) | payer OTHER, SELFPAY ==
[2021-09-30 11:39] LABS: Add Manual Diff / Slide Review NO; Basophils Absolute Auto 0 /uL (0-100); Basophils Percent Auto 0.5 % (0-2); Eosinophils Absolute Auto 100 /uL (0-450); Eosinophils Percent Auto 1.8 % (2-4); Hematocrit 36.7 % (36-46); Hemoglobin 12.6 g/dL (12.0-16.0); Lymphocytes Absolute Auto 900 /uL (1100-4500); Lymphocytes Percent Auto 17.9 % (25-40); Mean Corpuscular HGB Conc 34.4 % (30-36); Mean Corpuscular Hemoglobin 31.8 PG (26-34); Mean Corpuscular Volume 92.5 fL (80-100); Monocytes Absolute Auto 400 /uL (0-900); Monocytes Percent Auto 8.8 % (3-14); Neutrophils Absolute Auto 3500 /uL (1500-7000); Platelet Count 184 X10^3/uL (150-400); Red Blood Cell Count 3.96 X10^6/uL (4.0-5.2); Red Cell Distribution Width 14.3 % (11.6-14.8)
[2021-09-30 12:10] LABS: Alanine Aminotransferase 28 IU/L (<35); Albumin Globulin Ratio 1.7 (1.0-2.8); Alkaline Phosphatase 70 U/L (38-126); Aspartate Aminotransferase 30 IU/L (14-36); BUN Creatinine Ratio 25.8 (6-22); Bilirubin Total 1.3 mg/dL (0.2-1.3); Blood Urea Nitrogen 17 mg/dL (7-17); Calcium 9.8 mg/dL (8.4-10.2); Carbon Dioxide 31 mmol/L (22-32); Chloride 103 mmol/L (98-107); Cholesterol 157 mg/dL (140-199); Estimated Glomerular Filt Rate > 60 mL/min (>60); Globulin 2.4 g/dL (1.7-4.1); Glucose 109 mg/dL (80-110); HDL Cholesterol 72 mg/dL (40-60); HEMOLYSIS < 15 (0-50); LDL Cholesterol Calculated 64 mg/dL (<100); Potassium 3.9 mmol/L (3.4-5.1); Sodium 139 mmol/L (137-145); Total Protein 6.4 g/dL (6.3-8.2); Triglycerides 104 mg/dL (35-150)
[2021-09-30 12:38] LABS: TSH w/ Reflex to FT4 0.53 uIU/mL (0.47-4.68)
[2021-09-30 15:44] LABS: Microalbumin Urine Random 1.9 mg/dL (0-1.6)
[2021-09-30 15:45] LABS: Creatinine Urine Random 59.5 mg/dL; Microalbumi Creatinin Ratio Ur 31.9 ug/mg CR (<30)
== END ==
PROVIDERS: PCP Pediatrics; Referring Provider Pediatrics; Visit Provider Pediatrics
DX: E03.9 Hypothyroidism, unspecified (principal); E78.5 Hyperlipidemia, unspecified; I10 Essential (primary) hypertension; I71.4 Abdominal aortic aneurysm, without rupture; R13.10 Dysphagia, unspecified
CPT/HCPCS: 36415; 80053; 80061; 82043; 82570; 84443; 85025

== ENCOUNTER → 2021-10-22 11:58 | Outpatient (CLI) | payer OTHER, SELFPAY | PROVIDERS: PCP Pediatrics; Referring Provider Pediatrics; Visit Provider Pediatrics | DX: Z13.820 Encounter for screening for osteoporosis (principal); Z78.0 Asymptomatic menopausal state; M85.88 Other specified disorders of bone density and structure, other site | CPT/HCPCS: 77080; 77081 ==

== ENCOUNTER → 2022-04-03 13:03 | Outpatient (CLI) | payer OTHER, SELFPAY ==
--- NOTE | 2022-04-03 13:06 | DI.MRI.S_ITS ---
PROCEDURE: MR SHOULDER RT WO CON INDICATIONS: Unspecified rotator cuff tear or rupture TECHNIQUE: Noncontrast oblique coronal T2 fast spin echo with fat saturation, oblique sagittal T1 spin echo and T2 fast spin echo with fat saturation, axial T1 spin echo and T2 fast spin echo with fat saturation through the shoulder. COMPARISON: [facility], CR, XR SHOULDER 2+ VIEWS RIGHT, 01/25/2022, 11:59. FINDINGS: Image quality: Excellent. Rotator cuff: There is full-thickness tearing of the posterior supraspinatus tendon/anterior infraspinatus tendon at their distal insertions measuring at 0.9 cm in anterior-posterior dimension with proximal tendon retraction measuring up to 2.6 cm. Some of the anterior supraspinatus tendon fibers appear to be intact. There is moderate to severe tendinosis of the mid to posterior infraspinatus tendon. Fluid is seen tracking medially along the central tendinous band of the infraspinatus tendon to the myotendinous junction. There is mild grade 2 fatty infiltration of the supraspinatus and infraspinatus muscles. Grade 2-3 fatty infiltration of the teres minor tendon is suspicious for chronic denervation changes. No mass is seen along the course of the axillary nerve. The teres minor tendon is intact. There is moderate subscapularis tendinosis and probable low-grade partial bursal sided tearing at the distal insertion. No significant subscapularis muscle atrophy. Bones and bursae: No acute trabecular bone injury or fracture. Chronic traction cystic changes are seen at the posterosuperior humeral head. Mild surface cartilage irregularity is seen in the central glenohumeral joint. Postsurgical changes are seen at the acromioclavicular joint without recurrent narrowing of the supraspinatus outlet. There is a moderate glenohumeral effusion. A moderate subacromial/subdeltoid bursal effusion is seen that communicates with the glenohumeral joint. Capsule and soft tissues: Mild labral degeneration without a focal displaced tear. There is moderate tendinosis of the proximal biceps long head tendon with perching along the medial aspect of the bicipital groove. There is effacement of the normal fat signal in the rotator interval. The glenohumeral ligaments are intact. IMPRESSION: 1. Full-thickness tearing of the mid to posterior supraspinatus tendon and anterior fibers of the infraspinatus tendon at the distal insertions measuring 0.9 cm in anterior-posterior dimension with proximal tendon retraction measuring up to 2.6 cm. Moderate to severe posterior infraspinatus tendinosis. Mild grade 2 fatty infiltration of the supraspinatus and infraspinatus muscles. 2. Moderate tendinosis and low-grade bursal surface tearing of the subscapularis tendon at the superior insertion. 3. Grade 2-3 fatty infiltration of the teres minor muscle is most likely secondary to chronic denervation changes. No mass is seen along the course of the axillary nerve. 4. Moderate proximal biceps long head tendinosis. 5. Mild labral degeneration. Mild grade 2 chondromalacia in the glenohumeral joint. 6. Postsurgical changes of the acromioclavicular joint without recurrent narrowing of the supraspinatus outlet. 7. Moderate glenohumeral effusion communicates with the subacromial/subdeltoid bursa. Approved by: Chun Carlson M.D. on 04/05/2022 at 9:04
== END ==
PROVIDERS: Referring Provider Orthopaedic Surgery; Visit Provider Orthopaedic Surgery
DX: M75.121 Complete rotator cuff tear or rupture of right shoulder, not specified as traumatic (principal); M94.211 Chondromalacia, right shoulder; M25.411 Effusion, right shoulder
CPT/HCPCS: 73221

== ENCOUNTER 2024-07-05 08:00 | Outpatient (RCR) | payer OTHER, SELFPAY ==
--- NOTE | 2024-07-05 10:34 | OT.OP.DC ---
Visit Care Team Role Provider Type Zulema Hughes DO Attending Provider Non-Staff Family Provider Primary Care Provider Referring Provider Address: [address] [place], [place] [address], [address] Email: OT Outpatient OT Outpatient Adult Evaluation Start: 07/05/24 09:46 Freq: Status: Active Protocol: Document 07/05/24 09:46 AMS (Rec: 07/05/24 09:51 AMS Desktop) General Information - Adult Session Time Visit Start Time 08:30 Visit Stop Time 09:00 Setting Treatment Setting Outpatient Care Visit Type Note Type Initial Evaluation Assessment/Plan Assessment Treatment Assessment Janie Ott) is R hand dominant. Medical history significant for tape allergies ; arthritis; back pain; blood pressure; depression; dizziness; falls; migraines ( past); joint replacement; neck pain; osteopenia; stroke/TIA; thyroid disorder; varicose veins; vision problems (has glasses). Surgeries: carotid blockage; hip replacement; back surgery; neck surgery; hysterectomy; left foot surface; corrective eye surgery (11 years old); tonsillectomy; rotator cuff surgery; hernia. Medications include Statin, thyroid med, Plavix, Alenol, Lisinopril, Chloriphone, Trazadone, Meloxacame, Aspirin. QuickDASH UE Outcome Measure Score = 12 .5. Indicated 2 out of 10 on the wrist/hand Pain Assessment Grid. Janie reports that she is retired. Denies any functional limitations of B UEs given recent receipt of corticosteroid injections in bilateral shoulders. Able to oppose thumb to each digit pad bilaterally. Actively incorporating the R hand into daily, functional tasks. Main concerns indicated were balance and swallowing/ cognition. Recommend d/c from outpatient OT at this time. Plan Patient Recommendations Discharge from Occupational Therapy Functional Wrist/Hand Scan Hand Side Sensory Assessment Sensory Profile2
== END 2024-07-11 10:21 | disposition home or self-care (01) ==
LOC: OT 08:00
PROVIDERS: Family Provider Family Medicine; PCP Family Medicine; Referring Provider Family Medicine; Visit Provider Family Medicine
DX: I63.512 Cerebral infarction due to unspecified occlusion or stenosis of left middle cerebral artery (principal)
CPT/HCPCS: 97165

== ENCOUNTER 2024-11-06 13:45 | Outpatient (RCR) | payer OTHER, SELFPAY ==
--- NOTE | 2024-07-05 13:57 | ST.OPIE ---
Visit Care Team Role Provider Type Zulema Hughes DO Attending Provider Non-Staff Family Provider Primary Care Provider Referring Provider Specialty: Medical Address: [address] , [place], [address] Email: Speech-Language Pathology Initial Evaluation ASSEMBLER BONDING Adult Cognitive Linguistic Eval Start: 07/05/24 12:06 Freq: Status: Active Protocol: Document 07/05/24 12:08 SS (Rec: 07/05/24 13:11 SS Desktop) Adult Cognitive Linguistic Evaluation Session Time Visit Start Time 09:00 Visit Stop Time 09:45 Total Visit Minutes 45 Visit Information Visit Number Initial evaluation Plan of Care Dates 07/05/24-10/05/24 Insurance Information [facility] Advantage Referral Referring Provider Zulema Hughes Reason for Referral Speech and language s/p CVA Setting Assessment Location Outpatient Care Visit Type Note Type Initial evaluation Next Note Type Next Note Type Treatment Note Patient Information Identification Type Name Patient History Janie Santoyo is a 79-year-old female, who was 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 Huyen was in acute care and then received rehabilitation with physical therapy, occupational therapy, and speech-language pathology at [facility] from 06/11 to . ASSEMBLER BONDING services targeted aphasia and acquired apraxia of speech. The evaluation was conducted to establish current measures of speech and language prior to initiating treatment. Huyen attended the evaluation with her daughter, Nani. Pt and her daughter reported previous swallowing difficulties necessitating an MBSS and modified diet. Her swallowing concerns have since resolved. Previous medical diagnoses include hypertension , anxiety, and depression. Before her stroke, pt enjoyed conversing with family and friends as well. She was independent with all IADLs. Her ability to participate in conversations and complete baseline IADLs is now limited due to reduced verbal/written communication. This often results in communication breakdowns and feelings of frustration and embarrassment for the pt. At the time of the evaluation, pt lives with her , who is her main communication partner. Pt and daughter reported word-finding difficulties, phonemic and semantic paraphasias, multiple attempts to say certain words , and slow rate of speech. They denied difficulty with receptive language skills, cognition, or voice. Pt expressed that her main goal for speech therapy is ?to return to my normal speech?. Hearing Hearing Level Normal Vision Vision Status Impaired Comments Wears reading glasses Previous Therapy Previous Speech-Language Therapy Yes History of Therapy Acute rehabilitation at [facility] Subjective Patient Report Pt arrived to the session on time. She was engaged and motivated throughout. She was accompanied by her daughter, Nani. Mental Status Alert,Responsive,Cooperative Assessment Oral Motor Examination Completed Yes Results Oral/motor structures and functions were impaired with right-sided muscle weakness and reduced coordination of the tongue in depression and retraction tasks. A mild right -sided facial droop was also observed at rest and in lip protrusion tasks. She was unable to symmetrically puff her cheeks and demonstrated incomplete lip closure in rapid lip protrusion and closure tasks. Pt reported anterior loss of saliva on the right. Range of motion of the jaw was within normal limits for rapid open and closure and lateralization. Lingual strength was impaired bilaterally. Sensation appeared to be WNL. Informal Assessment Receptive Language Normal Yes Expressive Language Normal No Expressive Language Impairment(s) Confrontation naming,Divergent naming,Expression of basic wants/needs,Expression of complex thoughts/ideas Pragmatic Language Normal Yes Speech Normal No: Consistent with apraxia of speech Speech Impairment(s) Imprecise articulation,Slow speech rate,Prosody/Intonation Cognition Normal Yes Formal Assessment Administration Complete Results The Western Aphasia Battery- Revised (WAB-R) was administered to assess pt?s expressive and receptive language skills. The pt scored as follows: Auditory Verbal Comprehension: Yes/No Questions: 60/60 (100%) Auditory Word Recognition subtest: 60/60 (100%) Sequential Commands: 64/80 (80 %). Repetition: 66/100 (66%) *Responses were limited by speech characteristics consistent with apraxia of speech. Spontaneous Speech: Information Content: 9/10 (90% ) Fluency, Grammatical Competency, and Paraphasias: 9 /10 (90%) Naming and Word Findin/ 100 (88%) *Responses were limited by speech characteristics consistent with apraxia of speech. Aphasia Quotient: Spontaneous Speech Score: 18/ 20 Auditory Verbal Comprehension Score: 9.2/10 Repetition Score: 6.6/10 Naming and Word Finding Score: 8.8/10 Aphasia Quotient 85.2/100 Mild aphasia Findings/Results Language Function Mildly impaired Cognitive Function Within functional limits Findings Pt presents with mild aphasia. Her expressive aphasia is characterized by anomia and phonemic/semantic paraphasia. Her expressive language is limited by presentation consistent with apraxia. Her word finding impairments occurred consistently at all levels of speech including the single-word level. She was often able to self-correct without cueing, demonstrating high level of awareness. Her writing, which she did throughout the session, appeared to be fairly intact. Her receptive aphasia was characterized by difficulty with understanding auditory language, especially when featuring complex syntax or multiple components. Breakdowns were noted when she was given multistep commands or complex information. Mild impairment noted with expressive and receptive language skills, which is further complicated by presentation of apraxia. Cognitive Communication Deficits Self-awareness of Cognitive- Predictive awareness (able to Communication Deficits predict problem; impact of impairments) Concomitant Factors Concomitant Factors Other (comment) Comment Apraxia of speech ASSEMBLER BONDING Motor Speech Evaluation Start: 07/05/24 11:46 Freq: Status: Active Protocol: Document 07/05/24 12:08 SS (Rec: 07/05/24 13:11 SS Desktop) Motor Speech Evaluation Oral Motor Lips Function Mild Impairment Observation at rest Abnormal symmetry right Pucker Mildly reduced ROM and strength right Retraction Mildly reduced ROM and strength right Alternating pucker/retraction Mild incoordination Involuntary Movement None Tongue Function Mild Impairment Observations at rest WFL Protrusion Mildly reduced strength b/l Retraction Mildly reduced strength b/l Lateralization Mildly reduced strength b/l Involuntary Movement None Jaw Function WFL Soft Palate Function Mild Impairment Observations at rest Mildly flaccid on right Symmetry Mildly flaccid on right Elevation Mildly flaccid on right Sustained Elevation WFL Alternating elevation/relaxation WFL Involuntary Movement None Respiration/Phonation Tools Observations WFL Phonation Quality WNL Function WNL Loudness WNL Diadochokinetic Rates Speech Intelligibility Standardized Tests Assessment Name(s) Informal assessment during WAB -R and conversation Phoneme Severity Mildly Impaired Word Severity Mildly Impaired Sentence Severity Moderately Impaired Conversation Severity Moderately Impaired Awareness/Strategy Use Description Type of awareness/use Uses intermittently Findings Details Motor Speech Function Mild-Moderate Impairment Assessment Details Assessment In the Repetition subtest of the WAB-R, the ptwas asked to repeat words increasing in syllable length. She scored 3/ 3 on single syllable words and 3/3 on bisyllabic words. She struggled with multi-word phrases, scoring at 2/8 (25%). She attempted multiple times to self-correct, demonstrating awareness when her production did not match the target speech sound. Motor speech was also assessed during diadochokinetic drills with Sequential Motion Rate ( SMR) and Alternating Motion Rate (AMR) exercises, as well as during tasks of repetition and spontaneous speech. AMR testing, which is composed of rapid repetition of single consonant-vowel combination, exposed slow rate and substitutions of consonants. During the SMR testing, which is a compilation of three consonant-vowel combinations produced sequentially, pt displayed slow rate, distortions, additions, and substitutions of consonants. Puh = 4.2/second - Below Average Normative Average Rate for Syllable Per Second: Female (> 65): 5.0 Tuh = 4.5/second - Below Average Normative Average Rate for Syllable Per Second: Female (> 65): 4.8 Kuh = 3/second - Below Average Normative Average Rate for Syllable Per Second: Female (> 65): 4.4 Puh, Tuh, Kuh = 2.2/second - Below Average Normative Average Rate for Syllable Per Second: Female (> 65): 3.6 Automatic speech (counting, days of the week, months, name , address) were fairly intact, but pt had more difficulty with on-demand speech during WAB-R tasks or in conversation . She often demonstrated trial -and-error groping and self- corrections. During picture description task and conversation, errors were mixed prosodic and articulatory in nature. Pt demonstrated distortions of consonants (particularly bilabials), distorted substitutions, additions of schwa, omission of sounds, prolongations, and voicing errors (primarily devoicing). She also demonstrated slow rate, segregated character, equalized stress, and repetitive attempts to produce the same words. Pt had the least difficulty with tasks with low demands on speech, such automatic speech , imitation of isolated sounds , imitation of simple repetitive CVC syllables, and speech AMRs. She had the most difficulty with tasks that placed higher demands on volitional speech planning and programming, including speech SMRs and imitation of complex multisyllabic words and sentences. Prognosis Rehabilitation Potential Good Recommendations Treatment Recommended Yes Frequency 1x/week Duration 3 months Therapy Recommendations Pt presents with mild-moderate apraxia of speech and mild expressive and receptive aphasia. Her apraxia of speech (AOS) was characterized by segmented and effortful speech , consonants distortions, substitutions, and omissions. Her expressive aphasia was characterized by anomia and phonemic and semantic paraphasias. Pt is likely to make good prognosis for improvement with her aphasia and apraxia of speech given motivation to improve her functional communication and strong family support. Based on the results of this evaluation, it is recommended pt begin individual treatment targeting development of compensatory strategies for word finding difficulties and multi-modal communication strategies with communication partners. It is also recommended pt participate in structured treatment targeting AOS, such as Sound Production Treatment, Motor Learning Guided Treatment, and AAC. Pt and family education provided for ASSEMBLER BONDING POC, evaluation results, and role of ASSEMBLER BONDING. Pt and family expressed understanding of information provided. Pt to complete CPIB questionnaire to further collaborate on goal setting before next session. Short Term Goals 1. Pt will be able to repeat at the phrase level (two or more multisyllabic words) with 75% accuracy given ASSEMBLER BONDING model in order to increase verbal expression and overall communicative satisfaction ( baseline 25%). 2. Pt and family will receive education re: communication partner training and ways to support communication (gesture , written, expression, yes/no questions, etc) in order to improve pt ability to communicate needs and wasn?t as well as complex thoughts and feelings. 3. Pt will complete auditory comprehension 2-step direction following tasks with 90% accuracy in order to improve receptive language during everyday tasks (baseline 57%) 4. Pt will produce functional phrases with 90% accuracy independently in order to increase verbal expression and overall communicative satisfaction. Tunnel Inspector Goals 1. Pt will produce spontaneous speech using word-finding and total communication strategies independently in order to improve communication effectiveness and satisfaction with own speech. 2. Pt will demonstrate improved ease of communication with family, friends, and medical providers, compared to baseline of 04/23, through memory education, adaptation, and application of strategies and tools to real life. Patient/Family Education Education Described results of evaluation,Patient Understanding,Family Understanding
--- NOTE | 2024-07-05 13:58 | ST.OPPOC ---
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 Huyen was in acute care and then received rehabilitation with physical therapy, occupational therapy, and speech- language pathology at [facility] from 06/11 to . SURVEILLANCE SPECIALIST services targeted aphasia and acquired apraxia of speech. The evaluation was conducted to establish current measures of speech and language prior to initiating treatment. Huyen attended the evaluation with her daughter, Nani . Pt and her daughter reported previous swallowing difficulties necessitating an MBSS and modified diet. Her swallowing concerns have since resolved. Previous medical diagnoses include hypertension, anxiety, and depression. Before her stroke, pt enjoyed conversing with family and friends as well. She was independent with all IADLs. Her ability to participate in conversations and complete baseline IADLs is now limited due to reduced verbal/written communication. This often results in communication breakdowns and feelings of frustration and embarrassment for the pt. At the time of the evaluation, pt lives with her , who is her main communication partner. Pt and daughter reported word-finding difficulties, phonemic and semantic paraphasias, multiple attempts to say certain words, and slow rate of speech. They denied difficulty with receptive language skills, cognition, or voice. Pt expressed that her main goal for speech therapy is ?to return to my normal speech?. Self-awareness of Cognitive- Predictive awareness (abl Communication Deficits Short Term Goals 1. Pt will be able to repeat at the phrase level (two or more multisyllabic words) with 75% accuracy given SURVEILLANCE SPECIALIST model in order to increase verbal expression and overall communicative satisfaction (baseline 25%). 2. Pt and family will receive education re: communication partner training and ways to support communication (gesture, written, expression, yes/no questions, etc) in order to improve pt ability to communicate needs and wasn ?t as well as complex thoughts and feelings. 3. Pt will complete auditory comprehension 2- step direction following tasks with 90% accuracy in order to improve receptive language during everyday tasks (baseline 57%) 4. Pt will produce functional phrases with 90% accuracy independently in order to increase verbal expression and overall communicative satisfaction. Firebrick Layer Goals 1. Pt will produce spontaneous speech using word -finding and total communication strategies independently in order to improve communication effectiveness and satisfaction with own speech. 2. Pt will demonstrate improved ease of communication with family, friends, and medical providers, compared to baseline of 04/23, through memory education, adaptation, and application of strategies and tools to real life. Comment: Electronically Signed by: MILAN Chopra 07/05/24 6451 If you are in agreement with this Plan of Care, please return a signed and dated copy. I have reviewed this Plan of Care and certify that the skilled therapy services above are required to meet the patient?s needs. Physician Signature Date Printed Name and Credentials Clinical Instructor Signature Printed Name and Credentials
--- NOTE | 2024-07-05 14:01 | ST-OP ANOTE ---
Physical, Occupational & Speech Therapy At [facility] Speech Therapy Note POC sent to PCP, Dr. Hughes, via [employer], requesting signature if in agreement.
--- NOTE | 2024-07-17 16:08 | ST.OPTN ---
Visit Care Team Role Provider Type Zulema Hughes DO Attending Provider Non-Staff Family Provider Primary Care Provider Referring Provider Address: [facility] [place], [address] PLUGGING MACHINE OPERATOR Treatment Note PLUGGING MACHINE OPERATOR Treatment Note Start: 07/05/24 11:46 Freq: Status: Active Protocol: Document 07/17/24 15:47 SS (Rec: 07/17/24 16:08 SS Desktop) Speech Pathology Treatment Note Session Time Visit Start Time 14:30 Visit Stop Time 15:15 Total Visit Minutes 45 Visit Information Visit Number 2 Plan of Care Dates 07/05/24-10/05/24 Insurance [facility] Information Setting Treatment Setting Outpatient Care Visit Type Note Type Treatment Note Next Note Type Next Note Type Treatment Note General Information Patient History Janieely Santoyo is a 79-year-old female, who was 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 Huyen was in acute care and then received rehabilitation with physical therapy, occupational therapy, and speech-language pathology at [facility] from 06/11 to 06/15. 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 The evaluation was conducted to establish current measures of speech and language prior to initiating treatment. Huyen attended the evaluation with her daughter, Nani. Pt and her daughter reported previous swallowing difficulties necessitating an MBSS and modified diet. Her swallowing concerns have since resolved. Previous medical diagnoses include hypertension, anxiety, and depression . Before her stroke, pt enjoyed conversing with family and friends as well. She was independent with all IADLs . Her ability to participate in conversations and complete baseline IADLs is now limited due to reduced verbal/written communication. This often results in communication breakdowns and feelings of frustration and embarrassment for the pt. At the time of the evaluation, pt lives with her , who is her main communication partner. Pt and daughter reported word- finding difficulties, phonemic and semantic paraphasias , multiple attempts to say certain words, and slow rate of speech. They denied difficulty with receptive language skills, cognition, or voice. Pt expressed that her main goal for speech therapy is ?to return to my normal speech?. Subjective Identification Type Name Others Present Family Observations/Patient Pt was seen for session addressing aphasia and apraxia Presentation of speech post-CVA. Pt accompanied to the session by her . She was engaged and motivated throughout the session. Objective Short Term Goals 1. Pt will be able to repeat at the phrase level (two or more multisyllabic words) with 75% accuracy given PLUGGING MACHINE OPERATOR model in order to increase verbal expression and overall communicative satisfaction (baseline 25%). 2. Pt and family will receive education re: communication partner training and ways to support communication (gesture, written, expression, yes/no questions, etc) in order to improve pt ability to communicate needs and wasn?t as well as complex thoughts and feelings. 3. Pt will complete auditory comprehension 2-step direction following tasks with 90% accuracy in order to improve receptive language during everyday tasks ( baseline 57%) 4. Pt will produce functional phrases with 90% accuracy independently in order to increase verbal expression and overall communicative satisfaction. Mcc Goals 1. Pt will produce spontaneous speech using word- finding and total communication strategies independently in order to improve communication effectiveness and satisfaction with own speech. 2. Pt will demonstrate improved ease of communication with family, friends, and medical providers, compared to baseline of 04/23, through memory education, adaptation, and application of strategies and tools to real life. Treatment Activities Implemented an articulatory-kinematic approach to target apraxia of speech with the goal of improving articulatory accuracy. Trials of 2-3 step directions to target receptive language. Assessment Patient Response to Good Treatment Rehab Potential Good Impairments Expressive language,Receptive language,Speech Identified Progress Towards Good Progress Goals Assessment of Improving Overall Progress Assessment of Reviewed communication challenges from the last session Improvement . Pt brought in completed CPIB, scoring at 1/30, indicative of increased difficulty with communication 2 /2 apraxia and aphasia. She reported she is continuing to complete automatic speech tasks with daughters via zoom. She is doing well with automatic speech and is mostly having difficulty with connected speech during conversation, particularly with fricatives /s/, /z/, and sh, affricates ch and dg, /k/, and /p/. PLUGGING MACHINE OPERATOR provided education re: speaker and communication partner strategies, including speaking face to face, slow rate, repeating, using a similar word, and circumlocution. Pt expressed understanding and has been implementing these strategies at home. Also discussed importance of self-advocacy when speaking with unfamiliar communication partners or when speaking demand is high. Pt expressed she will try to implement self-advocacy statement created collaboratively with PLUGGING MACHINE OPERATOR and report back. PLUGGING MACHINE OPERATOR and pt identified 20 functional phrases that pt says on a daily basis. Pt produced 11/20 (55%) accurately in the first attempt. PLUGGING MACHINE OPERATOR implemented a combination of integral stimulation (watch me, listen to me, do as I do)and verbal feedback for articulatory placement. Utilized PLUGGING MACHINE OPERATOR cueing and constructive feedback to shape challenging sounds and words. Pt benefited most from cueing to slow down and elongate sounds, as her speed reduces accuracy. During trials of 2-3 step directions, pt completed them with 100% accuracy. She reports her comprehension has increased over the past two weeks. Provided list with sentences practiced on this date for home practice. Recommended pt identify additional 20 sentences for additional practice. Pt demonstrated good progress with speech tasks. Plan for pt to continue with daily HEP and speech therapy at a frequency of once a week targeting aphasia and apraxia of speech for improved communication. Reviewed with Goals,Progress Being Made,Home Exercise Program Patient Patient/Caregiver Good Understanding Plan Amount of Therapy 3 Months Recommended Frequency of Once a Week Treatment Length of Session 30 Minutes Therapeutic Contents Articulation Training,Client Education,Expressive Language Training,Home Exercise Program,Intelligibility ,Oral Motor Training,Receptive Language Training Provided Patient/ Home Exercise Program,Plan of Care,Questions/Concerns Caregiver Instruction Therapy Continue with Current Program Recommendations
--- NOTE | 2024-07-24 16:10 | ST.OPTN ---
Visit Care Team Role Provider Type Zulema Hughes DO Attending Provider Non-Staff Family Provider Primary Care Provider Referring Provider Address: [facility] [place], [address] TRAIN EXAMINER Treatment Note TRAIN EXAMINER Treatment Note Start: 07/05/24 11:46 Freq: Status: Active Protocol: Document 07/24/24 15:49 SS (Rec: 07/24/24 16:10 SS Desktop) Speech Pathology Treatment Note Session Time Visit Start Time 13:45 Visit Stop Time 14:30 Total Visit Minutes 45 Visit Information Visit Number 3 Plan of Care Dates 07/05/24-10/05/24 Insurance [facility] Information Setting Treatment Setting Outpatient Care Visit Type Note Type Treatment Note Next Note Type Next Note Type Treatment Note General Information Patient History Janieely Santoyo is a 79-year-old female, who was 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 Huyen was in acute care and then received rehabilitation with physical therapy, occupational therapy, and speech-language pathology at [facility] from 06/11 to 06/15. 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 The evaluation was conducted to establish current measures of speech and language prior to initiating treatment. Huyen attended the evaluation with her daughter, Nani. Pt and her daughter reported previous swallowing difficulties necessitating an MBSS and modified diet. Her swallowing concerns have since resolved. Previous medical diagnoses include hypertension, anxiety, and depression . Before her stroke, pt enjoyed conversing with family and friends as well. She was independent with all IADLs . Her ability to participate in conversations and complete baseline IADLs is now limited due to reduced verbal/written communication. This often results in communication breakdowns and feelings of frustration and embarrassment for the pt. At the time of the evaluation, pt lives with her , who is her main communication partner. Pt and daughter reported word- finding difficulties, phonemic and semantic paraphasias , multiple attempts to say certain words, and slow rate of speech. They denied difficulty with receptive language skills, cognition, or voice. Pt expressed that her main goal for speech therapy is ?to return to my normal speech?. Subjective Identification Type Name Others Present Family Observations/Patient Pt was seen for session addressing aphasia and apraxia Presentation of speech post-CVA. Pt accompanied to the session by her . She was engaged and motivated throughout the session. Objective Short Term Goals 1. Pt will be able to repeat at the phrase level (two or more multisyllabic words) with 75% accuracy given TRAIN EXAMINER model in order to increase verbal expression and overall communicative satisfaction (baseline 25%). 2. Pt and family will receive education re: communication partner training and ways to support communication (gesture, written, expression, yes/no questions, etc) in order to improve pt ability to communicate needs and wasn?t as well as complex thoughts and feelings. 3. Pt will complete auditory comprehension 2-step direction following tasks with 90% accuracy in order to improve receptive language during everyday tasks ( baseline 57%) 4. Pt will produce functional phrases with 90% accuracy independently in order to increase verbal expression and overall communicative satisfaction. Senior Care Goals 1. Pt will produce spontaneous speech using word- finding and total communication strategies independently in order to improve communication effectiveness and satisfaction with own speech. 2. Pt will demonstrate improved ease of communication with family, friends, and medical providers, compared to baseline of 04/23, through memory education, adaptation, and application of strategies and tools to real life. Treatment Activities Conversational coaching to teach partner and spouse to use verbal and nonverbal strategies to improve conversation interactions. Implemented an articulatory- kinematic approach to target apraxia of speech with the goal of improving articulatory accuracy during functional phrases. Assessment Patient Response to Good Treatment Rehab Potential Good Impairments Expressive language,Receptive language,Speech Identified Progress Towards Good Progress Goals Assessment of Improving Overall Progress Assessment of Reviewed communication challenges from the last session Improvement . Pt expressed she has been getting frustrated and emotional when her speech is less intelligible, which has been causing communication breakdowns between her and her . Assisted pt and spouse with identifying effective strategies for conversation ( strategies to send a message: writing, pausing, slow speech, main idea, ?you?re close to confirm, start over to correct wrong info. Strategies to receive a message: repeat back, ask main idea first, confirm information, give time to respond, and cue to slow rate of speech). May work on creating a hierarchy of strategies in next session. Pt and spouse were able to teach back? strategies to ensure understanding. Recommended pt and spouse begin to implement strategies in everyday conversations. Will plan on structured practice in communication situations with specific feedback in next session. TRAIN EXAMINER and pt identified 20 novel functional phrases that pt says on a daily basis. Pt produced 16/20 (80%) accurately in the first attempt. This is an improvement from last session. TRAIN EXAMINER implemented a combination of integral stimulation (watch me, listen to me, do as I do) and verbal feedback for articulatory placement. Utilized mirror for visual feedback. Utilized TRAIN EXAMINER cueing and constructive feedback to shape challenging sounds and words. Pt benefited most from cueing to slow down as her speed reduces accuracy. Provided list with new sentences practiced on this date for home practice. Recommended pt and spouse practice use of identified strategies in conversations and report next session. Discussed importance of spelling words as needed or coming back to topic at a later time to mitigate communication breakdowns as well as addressing communication challenges openly at home. Pt demonstrated good progress with speech tasks. Plan for pt to continue with daily HEP and speech therapy at a frequency of once a week targeting aphasia and apraxia of speech for improved communication. Reviewed with Goals,Progress Being Made,Home Exercise Program Patient Patient/Caregiver Good Understanding Plan Amount of Therapy 3 Months Recommended Frequency of Once a Week Treatment Length of Session 30 Minutes Therapeutic Contents Articulation Training,Client Education,Expressive Language Training,Home Exercise Program,Intelligibility ,Oral Motor Training,Receptive Language Training Provided Patient/ Home Exercise Program,Plan of Care,Questions/Concerns Caregiver Instruction Therapy Continue with Current Program Recommendations
--- NOTE | 2024-07-31 15:49 | ST.OPTN ---
Visit Care Team Role Provider Type Zulema Hughes DO Attending Provider Non-Staff Family Provider Primary Care Provider Referring Provider Address: [address] [place], [address] SOFTWARE SALES CONSULTANT Treatment Note SOFTWARE SALES CONSULTANT Treatment Note Start: 07/05/24 11:46 Freq: Status: Active Protocol: Document 07/31/24 15:23 SS (Rec: 07/31/24 15:49 SS Desktop) Speech Pathology Treatment Note Session Time Visit Start Time 13:45 Visit Stop Time 14:25 Total Visit Minutes 40 Visit Information Visit Number 4 Plan of Care Dates 07/05/24-10/05/24 Insurance [facility] Information Setting Treatment Setting Outpatient Care Visit Type Note Type Treatment Note Next Note Type Next Note Type Treatment Note General Information Patient History Janieely Santoyo is a 79-year-old female, who was 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 Huyen was in acute care and then received rehabilitation with physical therapy, occupational therapy, and speech-language pathology at [facility] from 06/11 to 06/15. 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 The evaluation was conducted to establish current measures of speech and language prior to initiating treatment. Huyen attended the evaluation with her daughter, Nani. Pt and her daughter reported previous swallowing difficulties necessitating an MBSS and modified diet. Her swallowing concerns have since resolved. Previous medical diagnoses include hypertension, anxiety, and depression . Before her stroke, pt enjoyed conversing with family and friends as well. She was independent with all IADLs . Her ability to participate in conversations and complete baseline IADLs is now limited due to reduced verbal/written communication. This often results in communication breakdowns and feelings of frustration and embarrassment for the pt. At the time of the evaluation, pt lives with her , who is her main communication partner. Pt and daughter reported word- finding difficulties, phonemic and semantic paraphasias , multiple attempts to say certain words, and slow rate of speech. They denied difficulty with receptive language skills, cognition, or voice. Pt expressed that her main goal for speech therapy is ?to return to my normal speech?. Subjective Identification Type Name Others Present Family Observations/Patient Pt was seen for session addressing aphasia and apraxia Presentation of speech post-CVA. Pt accompanied to the session by her . She was engaged and motivated throughout the session. Objective Short Term Goals 1. Pt will be able to repeat at the phrase level (two or more multisyllabic words) with 75% accuracy given SOFTWARE SALES CONSULTANT model in order to increase verbal expression and overall communicative satisfaction (baseline 25%). 2. Pt and family will receive education re: communication partner training and ways to support communication (gesture, written, expression, yes/no questions, etc) in order to improve pt ability to communicate needs and wasn?t as well as complex thoughts and feelings. 3. Pt will complete auditory comprehension 2-step direction following tasks with 90% accuracy in order to improve receptive language during everyday tasks ( baseline 57%) 4. Pt will produce functional phrases with 90% accuracy independently in order to increase verbal expression and overall communicative satisfaction. Longterm Goals 1. Pt will produce spontaneous speech using word- finding and total communication strategies independently in order to improve communication effectiveness and satisfaction with own speech. 2. Pt will demonstrate improved ease of communication with family, friends, and medical providers, compared to baseline of 04/23, through memory education, adaptation, and application of strategies and tools to real life. Treatment Activities Education re: rehab psychology and support groups to further support pt and spouse s/p CVA. Continued conversational coaching and reviewed use of verbal and nonverbal strategies during conversations. Implemented an articulatory-kinematic approach to target apraxia of speech with the goal of improving articulatory accuracy during semi-structured conversation. Education re: word-finding strategies when sending text messages and emailing to increase success with multimodal communication. Assessment Patient Response to Good Treatment Rehab Potential Good Impairments Expressive language,Receptive language,Speech Identified Progress Towards Good Progress Goals Assessment of Improving Overall Progress Assessment of At the beginning of the session, pt expressed some Improvement difficulty adjusting s/p CVA. SOFTWARE SALES CONSULTANT provided education re : role of rehab psychology as well as local support groups. Provided handouts with resources. Pt expressed she will look into resources as she thinks she would benefit from additional support. Discussed communication challenges in the last week. Pt expressed she has noted an improvement in her speech intelligibility. Her spouse noted reduced frustrated and reduced frequency and severity of communication breakdowns. Pt and spouse expressed they have been implementing trained strategies often and are finding them effective in increasing communicative success and mitigating instances of breakdown when they occur. Advanced to semi-structured conversation to increase generalization and carryover of strategies to the conversation level. Pt produced about 65% of utterances accurately in the first attempt. She benefited from a combination of integral stimulation (watch me, listen to me, do as I do), verbal feedback for articulatory placement, and a mirror for visual feedback. Given articulatory-kinematic approach and reminders to use communication strategies (slowing down, trying inaccurate words again), accuracy increased to approximately 85%. Pt had at times difficulty with multisyllabic words and words that contained /s/ followed by /l/, fricatives (?sh?), and affricates (?dg ? and ?ch?). She benefited from SOFTWARE SALES CONSULTANT cueing and constructive feedback to shape these challenging phonemes. Additionally, pt reported difficulty with word-finding during written tasks, such as sending text messages and writing emails, often writing messages that are not grammatical or do not utilize intended target words. SOFTWARE SALES CONSULTANT provided education re: use of predictive text, self -talk, and re-reading response in order to increase word retrieval and reduce likelihood of errors. Pt was able to compose x2 text messages to family members with min verbal cueing from SOFTWARE SALES CONSULTANT to utilize above strategies . She expressed she found them very helpful. Recommended pt implement strategies during written tasks throughout the week and report on progress. Pt agreeable. Discussed daily conversation opportunities for home practice of communication and speech skills. Encouraged pt and spouse to continue implementing use of communication strategies in conversations and report on progress in next session. Pt demonstrated good progress with speech and word-finding tasks with increased ability to independently implement tools/ strategies. Plan for pt to continue with daily HEP and speech therapy at a frequency of once a week targeting aphasia and apraxia of speech for improved communication. Reviewed with Goals,Progress Being Made,Home Exercise Program Patient Patient/Caregiver Good Understanding Plan Amount of Therapy 3 Months Recommended Frequency of Once a Week Treatment Length of Session 30 Minutes Therapeutic Contents Articulation Training,Client Education,Expressive Language Training,Home Exercise Program,Intelligibility ,Oral Motor Training,Receptive Language Training Provided Patient/ Home Exercise Program,Plan of Care,Questions/Concerns Caregiver Instruction Therapy Continue with Current Program Recommendations
--- NOTE | 2024-08-07 17:57 | ST.OPTN ---
Visit Care Team Role Provider Type Zulema Hughes DO Attending Provider Non-Staff Family Provider Primary Care Provider Referring Provider Address: [facility] [place], [address] HEAD OF MUSIC Treatment Note HEAD OF MUSIC Treatment Note Start: 07/05/24 11:46 Freq: Status: Active Protocol: Document 08/07/24 17:50 SS (Rec: 08/07/24 17:57 SS Desktop) Speech Pathology Treatment Note Session Time Visit Start Time 13:40 Visit Stop Time 14:25 Total Visit Minutes 45 Visit Information Visit Number 5 Plan of Care Dates 07/05/24-10/05/24 Insurance [facility] Information Setting Treatment Setting Outpatient Care Visit Type Note Type Treatment Note Next Note Type Next Note Type Treatment Note General Information Patient History Janieely Santoyo is a 79-year-old female, who was 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 Huyen was in acute care and then received rehabilitation with physical therapy, occupational therapy, and speech-language pathology at [facility] from 06/11 to 06/15. 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 The evaluation was conducted to establish current measures of speech and language prior to initiating treatment. Huyen attended the evaluation with her daughter, Nani. Pt and her daughter reported previous swallowing difficulties necessitating an MBSS and modified diet. Her swallowing concerns have since resolved. Previous medical diagnoses include hypertension, anxiety, and depression . Before her stroke, pt enjoyed conversing with family and friends as well. She was independent with all IADLs . Her ability to participate in conversations and complete baseline IADLs is now limited due to reduced verbal/written communication. This often results in communication breakdowns and feelings of frustration and embarrassment for the pt. At the time of the evaluation, pt lives with her , who is her main communication partner. Pt and daughter reported word- finding difficulties, phonemic and semantic paraphasias , multiple attempts to say certain words, and slow rate of speech. They denied difficulty with receptive language skills, cognition, or voice. Pt expressed that her main goal for speech therapy is ?to return to my normal speech?. Subjective Identification Type Name Others Present Family Observations/Patient Pt was seen for session addressing aphasia and apraxia Presentation of speech post-CVA. Pt accompanied to the session by her . She was engaged and motivated throughout the session. Objective Short Term Goals 1. Pt will be able to repeat at the phrase level (two or more multisyllabic words) with 75% accuracy given HEAD OF MUSIC model in order to increase verbal expression and overall communicative satisfaction (baseline 25%). 2. Pt and family will receive education re: communication partner training and ways to support communication (gesture, written, expression, yes/no questions, etc) in order to improve pt ability to communicate needs and wasn?t as well as complex thoughts and feelings. 3. Pt will complete auditory comprehension 2-step direction following tasks with 90% accuracy in order to improve receptive language during everyday tasks ( baseline 57%) 4. Pt will produce functional phrases with 90% accuracy independently in order to increase verbal expression and overall communicative satisfaction. [facility] Goals 1. Pt will produce spontaneous speech using word- finding and total communication strategies independently in order to improve communication effectiveness and satisfaction with own speech. 2. Pt will demonstrate improved ease of communication with family, friends, and medical providers, compared to baseline of 04/23, through memory education, adaptation, and application of strategies and tools to real life. Treatment Activities Continued conversational coaching and reviewed use of verbal and nonverbal strategies during conversations. Implemented an articulatory-kinematic approach to target apraxia of speech with the goal of improving articulatory accuracy during semi-structured conversation. Implementation of Semantic Feature Analysis to target word-finding in conversation. Assessment Patient Response to Good Treatment Rehab Potential Good Impairments Expressive language,Receptive language,Speech Identified Progress Towards Good Progress Goals Assessment of Improving Overall Progress Assessment of Discussed communication and overall speech in the last Improvement week. Pt expressed she continues to notice an improvement in her speech intelligibility. She stated that she is more cognizant of slowing her rate of speech and clearly communicating with her spouse if she would like to move on from a certain word/topic and return to it later. This has helped reduce her overall frustration during conversations. During semi-structured conversation with HEAD OF MUSIC, pt produced about 70% of utterances accurately in the first attempt. She again benefited from a combination of integral stimulation (watch me, listen to me, do as I do), verbal feedback for articulatory placement, and a mirror for visual feedback. Given articulatory- kinematic approach and reminders to use communication strategies (slowing down, trying inaccurate words again ), accuracy increased to approximately 80-85%. Pt continues ot benefit from positive encouragement and constructive feedback when producing challenging words or becoming increasingly frustrated with own productions. Semantic Feature Analysis (SFA) implemented to target anomia and use of circumlocution for improved word retrieval. The pt was provided with a visual graphic organizer with six categories (category/group, use, action, properties, location, and association) and was asked to generate words across the six categories for personally-relevant, functional words. She produced an average of 12 content words per target photo, increasing to 20+ words given semantic and phonemic cueing. She was able to produce succinct and effective descriptions for each target word in all opportunities. Discussed daily conversation opportunities for home practice of communication and speech skills. Encouraged pt and spouse to continue implementing use of communication strategies in conversations. Additionally , provided structured SFA practice and recommended pt begin to implement circumlocution (referencing ot visual aid as needed) during everyday conversations. Pt agreeable. Plan for pt to continue with daily HEP and speech therapy at a frequency of once a week targeting aphasia and apraxia of speech for improved communication. Reviewed with Goals,Progress Being Made,Home Exercise Program Patient Patient/Caregiver Good Understanding Plan Amount of Therapy 3 Months Recommended Frequency of Once a Week Treatment Length of Session 30 Minutes Therapeutic Contents Articulation Training,Client Education,Expressive Language Training,Home Exercise Program,Intelligibility ,Oral Motor Training,Receptive Language Training Provided Patient/ Home Exercise Program,Plan of Care,Questions/Concerns Caregiver Instruction Therapy Continue with Current Program Recommendations
--- NOTE | 2024-08-14 17:08 | ST.OPTN ---
Visit Care Team Role Provider Type Zulema Hughes DO Attending Provider Non-Staff Family Provider Primary Care Provider Referring Provider Address: [facility], [place], [address] SURVEY CAD TECHNICIAN Treatment Note SURVEY CAD TECHNICIAN Treatment Note Start: 07/05/24 11:46 Freq: Status: Active Protocol: Document 08/14/24 16:55 SS (Rec: 08/14/24 17:08 SS Desktop) Speech Pathology Treatment Note Session Time Visit Start Time 13:50 Visit Stop Time 14:25 Total Visit Minutes 35 Visit Information Visit Number 6 Plan of Care Dates 07/05/24-10/05/24 Insurance [facility] Information Setting Treatment Setting Outpatient Care Visit Type Note Type Treatment Note Next Note Type Next Note Type Treatment Note General Information Patient History Janieely Santoyo is a 79-year-old female, who was 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 Huyen was in acute care and then received rehabilitation with physical therapy, occupational therapy, and speech-language pathology at [facility] from 06/11 to 06/15. 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 The evaluation was conducted to establish current measures of speech and language prior to initiating treatment. Huyen attended the evaluation with her daughter, Nani. Pt and her daughter reported previous swallowing difficulties necessitating an MBSS and modified diet. Her swallowing concerns have since resolved. Previous medical diagnoses include hypertension, anxiety, and depression . Before her stroke, pt enjoyed conversing with family and friends as well. She was independent with all IADLs . Her ability to participate in conversations and complete baseline IADLs is now limited due to reduced verbal/written communication. This often results in communication breakdowns and feelings of frustration and embarrassment for the pt. At the time of the evaluation, pt lives with her , who is her main communication partner. Pt and daughter reported word- finding difficulties, phonemic and semantic paraphasias , multiple attempts to say certain words, and slow rate of speech. They denied difficulty with receptive language skills, cognition, or voice. Pt expressed that her main goal for speech therapy is ?to return to my normal speech?. Subjective Identification Type Name Others Present Family Observations/Patient Pt was seen for session addressing aphasia and apraxia Presentation of speech post-CVA. Pt accompanied to the session by her . She was engaged and motivated throughout the session. Objective Short Term Goals 1. Pt will be able to repeat at the phrase level (two or more multisyllabic words) with 75% accuracy given SURVEY CAD TECHNICIAN model in order to increase verbal expression and overall communicative satisfaction (baseline 25%). 2. Pt and family will receive education re: communication partner training and ways to support communication (gesture, written, expression, yes/no questions, etc) in order to improve pt ability to communicate needs and wasn?t as well as complex thoughts and feelings. 3. Pt will complete auditory comprehension 2-step direction following tasks with 90% accuracy in order to improve receptive language during everyday tasks ( baseline 57%) 4. Pt will produce functional phrases with 90% accuracy independently in order to increase verbal expression and overall communicative satisfaction. Fpc Goals 1. Pt will produce spontaneous speech using word- finding and total communication strategies independently in order to improve communication effectiveness and satisfaction with own speech. 2. Pt will demonstrate improved ease of communication with family, friends, and medical providers, compared to baseline of 04/23, through memory education, adaptation, and application of strategies and tools to real life. Treatment Activities Continued conversational coaching and reviewed use of verbal and nonverbal strategies during conversations. Implemented an articulatory-kinematic approach to target apraxia of speech with the goal of improving articulatory accuracy during conversation. Implementation of Semantic Feature Analysis and other word-finding strategies to target word-finding in conversation and when when writing text messages. Assessment Patient Response to Good Treatment Rehab Potential Good Impairments Expressive language,Receptive language,Speech Identified Progress Towards Good Progress Goals Assessment of Improving Overall Progress Assessment of Discussed communication and overall speech in the last Improvement week. Pt reported her speech intelligibility continues to improve. She expressed she continues to feel self- conscious during conversations with people outside of her immediate family. While word-finding in conversation has increased, she continues to struggle with word-finding when composing text messages. During conversation with SURVEY CAD TECHNICIAN, pt produced about 85-90% of utterances accurately in the first attempt. This is a significant improvement from prior sessions. She demonstrated minimal hesitations, distortions of consonants, and inconsistent attempts when producing the same word. She again benefited from a combination of integral stimulation (watch me, listen to me, do as I do), verbal feedback for articulatory placement, and a mirror for visual feedback when producing words inaccurately. Given articulatory-kinematic approach and reminders to slow down, accuracy increased to approximately 90-100%. Of note, at the beginning of the session, pt initially would produce multiple attempts of the same word inconsistently. Now, she is able to self-correct inaccurate productions successfully on the first attempt. During structured practice, pt was able to produce succinct and effective descriptions for each target word in all opportunities. In conversation, she did not demonstrate instances of anomia and hesitations were minimal and secondary to apraxia. Reviewed word-finding strategies for composing text messages as pt continues to report difficulty with sending text messages to family and friends. When prompted to compose text message independently, she reported x2 instances of anomia and struggles to retrieve the target word. Given cueing to read the message out loud and utilize predictive function, she was able to compose and send the text message without difficulty. Recommended she continue implementing word-finding strategies in conversation and during functional writing tasks, which pt was agreeable to. Pt participated well in today?s session. She continues to demonstrate good progress with increased intelligibility in conversation and use of strategies when appropriate. She has been motivated to implement recommended strategies from prior sessions. Plan for pt to continue with daily HEP and speech therapy at a frequency of once a week targeting aphasia and apraxia of speech for improved communication. Reviewed with Goals,Progress Being Made,Home Exercise Program Patient Patient/Caregiver Good Understanding Plan Amount of Therapy 3 Months Recommended Frequency of Once a Week Treatment Length of Session 30 Minutes Therapeutic Contents Articulation Training,Client Education,Expressive Language Training,Home Exercise Program,Intelligibility ,Oral Motor Training,Receptive Language Training Provided Patient/ Home Exercise Program,Plan of Care,Questions/Concerns Caregiver Instruction Therapy Continue with Current Program Recommendations
--- NOTE | 2024-08-21 17:08 | ST.OPTN ---
Visit Care Team Role Provider Type Zulema Hughes DO Attending Provider Non-Staff Family Provider Primary Care Provider Referring Provider Address: [address] , [place], [address] QUILL COLLECTOR Treatment Note QUILL COLLECTOR Treatment Note Start: 07/05/24 11:46 Freq: Status: Active Protocol: Document 08/21/24 16:54 SS (Rec: 08/21/24 17:08 SS Desktop) Speech Pathology Treatment Note Session Time Visit Start Time 13:35 Visit Stop Time 14:15 Total Visit Minutes 40 Visit Information Visit Number 7 Plan of Care Dates 07/05/24-10/05/24 Insurance [facility] (x15 visits then additional Information auth) Setting Treatment Setting Outpatient Care Visit Type Note Type Treatment Note Next Note Type Next Note Type Treatment Note General Information Patient History Janie Rosalba Santoyo is a 79-year-old female, who was 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 Huyen was in acute care and then received rehabilitation with physical therapy, occupational therapy, and speech-language pathology at [facility] from 06/11 to 06/15. QUILL COLLECTOR services targeted aphasia and acquired apraxia of speech. The evaluation was conducted to establish current measures of speech and language prior to initiating treatment. Huyen attended the evaluation with her daughter, Nani. Pt and her daughter reported previous swallowing difficulties necessitating an MBSS and modified diet. Her swallowing concerns have since resolved. Previous medical diagnoses include hypertension, anxiety, and depression . Before her stroke, pt enjoyed conversing with family and friends as well. She was independent with all IADLs . Her ability to participate in conversations and complete baseline IADLs is now limited due to reduced verbal/written communication. This often results in communication breakdowns and feelings of frustration and embarrassment for the pt. At the time of the evaluation, pt lives with her , who is her main communication partner. Pt and daughter reported word- finding difficulties, phonemic and semantic paraphasias , multiple attempts to say certain words, and slow rate of speech. They denied difficulty with receptive language skills, cognition, or voice. Pt expressed that her main goal for speech therapy is ?to return to my normal speech?. Subjective Identification Type Name Others Present Family Observations/Patient Pt was seen for session addressing aphasia and apraxia Presentation of speech post-CVA. Pt accompanied to the session by her . She was engaged and motivated throughout the session. Objective Short Term Goals 1. Pt will be able to repeat at the phrase level (two or more multisyllabic words) with 75% accuracy given QUILL COLLECTOR model in order to increase verbal expression and overall communicative satisfaction (baseline 25%). 2. Pt and family will receive education re: communication partner training and ways to support communication (gesture, written, expression, yes/no questions, etc) in order to improve pt ability to communicate needs and wasn?t as well as complex thoughts and feelings. 3. Pt will complete auditory comprehension 2-step direction following tasks with 90% accuracy in order to improve receptive language during everyday tasks ( baseline 57%) 4. Pt will produce functional phrases with 90% accuracy independently in order to increase verbal expression and overall communicative satisfaction. Intermediate Goals 1. Pt will produce spontaneous speech using word- finding and total communication strategies independently in order to improve communication effectiveness and satisfaction with own speech. 2. Pt will demonstrate improved ease of communication with family, friends, and medical providers, compared to baseline of 04/23, through memory education, adaptation, and application of strategies and tools to real life. Treatment Activities Continued conversational coaching and reviewed use of verbal and nonverbal strategies during conversations. Education re: communication strategies and use of self- advocacy statement. Implemented an articulatory- kinematic approach to target apraxia of speech with the goal of improving articulatory accuracy during conversation. Reviewed progress and discussed home practice. Assessment Patient Response to Good Treatment Rehab Potential Good Impairments Expressive language,Receptive language,Speech Identified Progress Towards Good Progress Goals Assessment of Improving Overall Progress Assessment of Discussed communication and overall speech in the last Improvement week. Pt?s spouse expressed that he continues to notice good improvement in overall speech intelligibility. However, pt reported she continues to struggle with feeling confidant and comfortable during conversation, stating ?I don?t feel like I?m even there? and ?I don?t want to converse like I used to?. While pt?s speech production continues to improve, she has difficulty participating in conversations which has been affecting her overall life participation. QUILL COLLECTOR reviewed communication strategies, including implementing environmental modifications, speaking face to face, asking people to slow down, telling people about the difficulty with communicating and helping them understand how to help. Additionally, discussed importance of simplifying the message, only saying what is necessary in high emotion situations and with important information, and being as clear and concise as possible. Provided educational handout. Pt and spouse expressed understanding of strategies and expressed they will continue to put effort towards implementing them together and with other family members. Also discussed importance of using previously created self-advocacy statement to explain situation and effective strategies when speaking with less familiar conversation partners. Pt expressed she has not been implementing it recently, but would like to begin doing so more consistently. During conversation with QUILL COLLECTOR, pt produced about 90% of utterances accurately in the first attempt. This is continued improvement from prior sessions. She demonstrated frequent hesitations and segregation of syllables, but very occasional distortions or inconsistent attempts when producing the same word. She continued to benefit from a combination of integral stimulation (watch me, listen to me, do as I do), verbal feedback for articulatory placement, and a mirror for visual feedback when producing words inaccurately. Given articulatory-kinematic approach and reminders to slow down, accuracy increased to approximately 95-100%. Pt participated well in today?s session. She continues to demonstrate good progress with increased intelligibility in conversation and use of communication strategies when appropriate. She has been motivated to implement recommended strategies from prior sessions. She will benefit from continued implementation of communication strategies and self- advocacy statement outside of QUILL COLLECTOR sessions. Discussed conversation opportunities that pt currently has difficulty with, such as breakfast after taoist with family, and provided recommendations re: increased communicative confidence during similar social situations. Plan for pt to continue with daily HEP and speech therapy at a frequency of once a week targeting aphasia and apraxia of speech for improved communication. Reviewed with Goals,Progress Being Made,Home Exercise Program Patient Patient/Caregiver Good Understanding Plan Amount of Therapy 3 Months Recommended Frequency of Once a Week Treatment Length of Session 30 Minutes Therapeutic Contents Articulation Training,Client Education,Expressive Language Training,Home Exercise Program,Intelligibility ,Oral Motor Training,Receptive Language Training Provided Patient/ Home Exercise Program,Plan of Care,Questions/Concerns Caregiver Instruction Therapy Continue with Current Program Recommendations
--- NOTE | 2024-08-28 16:15 | ST.OPTN ---
Visit Care Team Role Provider Type Zulema Hughes DO Attending Provider Non-Staff Family Provider Primary Care Provider Referring Provider Address: [address] [place] [address], [place], [address] MORALE OFFICER Treatment Note MORALE OFFICER Treatment Note Start: 07/05/24 11:46 Freq: Status: Active Protocol: Document 08/28/24 15:51 SS (Rec: 08/28/24 16:15 SS Desktop) Speech Pathology Treatment Note Session Time Visit Start Time 13:45 Visit Stop Time 14:30 Total Visit Minutes 45 Visit Information Visit Number 7 Plan of Care Dates 07/05/24-10/05/24 Insurance [facility] (x15 visits then additional Information auth) Setting Treatment Setting Outpatient Care Visit Type Note Type Treatment Note Next Note Type Next Note Type Treatment Note General Information Patient History Janie ?Antonia Santoyo is a 79-year-old female, who was 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 Huyen was in acute care and then received rehabilitation with physical therapy, occupational therapy, and speech-language pathology at [facility] from 06/11 to 06/15. 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 The evaluation was conducted to establish current measures of speech and language prior to initiating treatment. Huyen attended the evaluation with her daughter, Nani. Pt and her daughter reported previous swallowing difficulties necessitating an MBSS and modified diet. Her swallowing concerns have since resolved. Previous medical diagnoses include hypertension, anxiety, and depression . Before her stroke, pt enjoyed conversing with family and friends as well. She was independent with all IADLs . Her ability to participate in conversations and complete baseline IADLs is now limited due to reduced verbal/written communication. This often results in communication breakdowns and feelings of frustration and embarrassment for the pt. At the time of the evaluation, pt lives with her , who is her main communication partner. Pt and daughter reported word- finding difficulties, phonemic and semantic paraphasias , multiple attempts to say certain words, and slow rate of speech. They denied difficulty with receptive language skills, cognition, or voice. Pt expressed that her main goal for speech therapy is ?to return to my normal speech?. Subjective Identification Type Name Others Present Family Observations/Patient Pt was seen for session addressing aphasia and apraxia Presentation of speech post-CVA. Pt accompanied to the session by her , Steven. She was engaged and motivated throughout the session. Objective Short Term Goals 1. Pt will be able to repeat at the phrase level (two or more multisyllabic words) with 75% accuracy given MORALE OFFICER model in order to increase verbal expression and overall communicative satisfaction (baseline 25%). 2. Pt and family will receive education re: communication partner training and ways to support communication (gesture, written, expression, yes/no questions, etc) in order to improve pt ability to communicate needs and wasn?t as well as complex thoughts and feelings. 3. Pt will complete auditory comprehension 2-step direction following tasks with 90% accuracy in order to improve receptive language during everyday tasks ( baseline 57%) 4. Pt will produce functional phrases with 90% accuracy independently in order to increase verbal expression and overall communicative satisfaction. Retirement Goals 1. Pt will produce spontaneous speech using word- finding and total communication strategies independently in order to improve communication effectiveness and satisfaction with own speech. 2. Pt will demonstrate improved ease of communication with family, friends, and medical providers, compared to baseline of 04/23, through memory education, adaptation, and application of strategies and tools to real life. Treatment Activities Continued conversational coaching and reviewed use of verbal and nonverbal strategies during conversations. Identified communication strategies and phrases to use in conversation when having word-finding difficulty or feeling overwhelmed/frustrated. Implemented an articulatory-kinematic approach to target apraxia of speech with the goal of improving articulatory accuracy during conversation. Implemented circumlocution in conversation to increase independent use of word- finding strategies. Reviewed progress and discussed home practice. Assessment Patient Response to Good Treatment Rehab Potential Good Impairments Expressive language,Receptive language,Speech Identified Progress Towards Good Progress Goals Assessment of Improving Overall Progress Assessment of Discussed communication and overall speech in the last Improvement week. Pt expressed she continues to note some changes in her hearing and sensation of the left side of her face. While her sialorrhea has improved, she feels she is producing more saliva than prior to the stroke. Recommended pt discuss these concerns with her PCP and may benefit from referral to ENT. Pt expressed difficulty with participating in conversations and has difficulty with feeling confident about her speech. She expressed she has limited her social interactions since the stroke, which she had previously enjoyed. She is motivated to attend a local support group. MORALE OFFICER encouraged pt to discuss referral to rehab psychology with her PCP for additional counseling following stroke , which pt was agreeable with. During conversation with MORALE OFFICER, pt produced about 90% of utterances accurately in the first attempt. Given integral stimulation (watch me, listen to me, do as I do) and verbal feedback for articulatory placement, accuracy increased to 100%. Pt was able to independently implement circumlocution during word- finding instances throughout the session. She benefited from occasional verbal reminders (Can you try to describe it?) to retrieve the target word. Pt expressed ongoing communication breakdowns with family members in conversation. MORALE OFFICER explained importance of describing speech changes s/p stroke and discussing effective conversation strategies. Assisted pt in creating a list of effective strategies, including speaking face to face, reducing distractions, allowing enough time to respond, clearly moving from one topic to another. Additionally, explained how heightened emotions can increase imprecise articulation and word-finding difficulty and identified phrases pt could utilize in the moment to improve communication (e .g., ?I?m having a hard time with this word. Let me try again? or ?this is too difficult right now. Can we come back to it later??). Recommended pt place visual aid at a central location in her home and reference it during conversations, which pt stated she was motivated to do. Pt participated well in today?s session. She continues to demonstrate good progress with increased intelligibility in conversation and use of communication strategies most of the time. She will benefit from continued implementation of communication strategies and discussion of speech and speech strategies with family and friends to reduce communication breakdowns and improve overall communicative effectiveness. Continue to reduce cueing and support to increase independent use of motor speech strategies in conversation. Plan for pt to continue at a frequency of once a week targeting aphasia and apraxia of speech for improved communication given pt progress and report. Reviewed with Goals,Progress Being Made,Home Exercise Program Patient Patient/Caregiver Good Understanding Plan Amount of Therapy 3 Months Recommended Frequency of Once a Week Treatment Length of Session 30 Minutes Therapeutic Contents Articulation Training,Client Education,Expressive Language Training,Home Exercise Program,Intelligibility ,Oral Motor Training,Receptive Language Training Provided Patient/ Home Exercise Program,Plan of Care,Questions/Concerns Caregiver Instruction Therapy Continue with Current Program Recommendations
--- NOTE | 2024-09-04 15:41 | ST.OPTN ---
Visit Care Team Role Provider Type Zulema Hughes DO Attending Provider Non-Staff Family Provider Primary Care Provider Referring Provider Address: [address] [place] [address], [place], [address] PHYSICIAN ASSISTANT Treatment Note PHYSICIAN ASSISTANT Treatment Note Start: 07/05/24 11:46 Freq: Status: Active Protocol: Document 09/04/24 15:19 SS (Rec: 09/04/24 15:40 SS Desktop) Speech Pathology Treatment Note Session Time Visit Start Time 13:45 Visit Stop Time 14:25 Total Visit Minutes 40 Visit Information Visit Number [id number] Plan of Care Dates 07/05/24-10/05/[address] 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 Huyen was in acute care and then received rehabilitation with physical therapy, occupational therapy, and speech-language pathology at [facility] from 06/11 to 06/15. 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 The evaluation was conducted to establish current measures of speech and language prior to initiating treatment. Huyen attended the evaluation with her daughter, Nani. Pt and her daughter reported previous swallowing difficulties necessitating an MBSS and modified diet. Her swallowing concerns have since resolved. Previous medical diagnoses include hypertension, anxiety, and depression . Before her stroke, pt enjoyed conversing with family and friends as well. She was independent with all IADLs . Her ability to participate in conversations and complete baseline IADLs is now limited due to reduced verbal/written communication. This often results in communication breakdowns and feelings of frustration and embarrassment for the pt. At the time of the evaluation, pt lives with her , who is her main communication partner. Pt and daughter reported word- finding difficulties, phonemic and semantic paraphasias , multiple attempts to say certain words, and slow rate of speech. They denied difficulty with receptive language skills, cognition, or voice. Pt expressed that her main goal for speech therapy is ?to return to my normal speech?. Subjective Identification Type Name Others Present Family Observations/Patient Pt was seen for session addressing aphasia and apraxia Presentation of speech post-CVA. Pt accompanied to the session by her grandchild who is visiting. She was engaged and motivated throughout the session. Objective Short Term Goals 1. Pt will be able to repeat at the phrase level (two or more multisyllabic words) with 75% accuracy given PHYSICIAN ASSISTANT model in order to increase verbal expression and overall communicative satisfaction (baseline 25%). 2. Pt and family will receive education re: communication partner training and ways to support communication (gesture, written, expression, yes/no questions, etc) in order to improve pt ability to communicate needs and wasn?t as well as complex thoughts and feelings. 3. Pt will complete auditory comprehension 2-step direction following tasks with 90% accuracy in order to improve receptive language during everyday tasks ( baseline 57%) 4. Pt will produce functional phrases with 90% accuracy independently in order to increase verbal expression and overall communicative satisfaction. Real Estate Branch Manager Goals 1. Pt will produce spontaneous speech using word- finding and total communication strategies independently in order to improve communication effectiveness and satisfaction with own speech. 2. Pt will demonstrate improved ease of communication with family, friends, and medical providers, compared to baseline of 04/23, through memory education, adaptation, and application of strategies and tools to real life. Treatment Activities Continued conversational coaching and reviewed use of verbal and nonverbal strategies during conversations. Implemented an articulatory-kinematic approach to target apraxia of speech with the goal of improving articulatory accuracy during structured speech activities and in conversation. Trials of 2-3 step directions. Reviewed progress and provided home practice. Assessment Patient Response to Good Treatment Rehab Potential Good Impairments Expressive language,Receptive language,Speech Identified Progress Towards Good Progress Goals Assessment of Improving Overall Progress Assessment of Discussed communication and overall speech in the last Improvement week. Pt expressed increased confidence when speaking to familiar and less familiar communication partners. She stated that she has been implementing strategies, including slower rate, repeating words that were inaccurate or unclear, and over articulating. She also explained that she has been confirming information more often (e.g., ?did you get that?? or ?do you need me to say it again??) and asking communication partners to be patient with her. Implemented integral stimulation (watch me, listen to me, do as I do) and verbal feedback for articulatory placement during structured speech tasks and conversation as follows: Divergent naming activity: 89% accuracy, increasing to 95% accuracy. Pt was provided with category and was asked to provide three additional items in that category. Benefited from cueing to slow down and repeat words that contained phonemes that were distorted or substituted. Sentence closure activity: 92% accuracy, increasing to 100% accuracy. Pt was provided with a beginning of a sentence and was asked to complete the sentence, Again, she benefited from cueing to slow down and repeat words that contained phonemes that were distorted or substituted. During conversation, she benefited from occasional cueing to increase awareness of productions (e.g., ?did that sound right to you??). She was able to correct most productions with minimal cueing today. Pt is becoming more aware of her errors, and often attempts to self-correct. During trials of 2-3 step instructions, pt was able to complete all steps accurately in 100% of opportunities. She reports she is no longer noticing difficulty with receptive language skills, which is consistent with PHYSICIAN ASSISTANT ?s observations. Pt participated well in today?s session. She demonstrated improvement across all activities and in conversation with reduced need for cueing and support. She will benefit from continued implementation of speech and communication strategies in conversation. She will also benefit from managing cognitive load given internal distractions (fatigue, emotional state), external distractions, linguistic demand, and interactional demand as her ability to implement strategies independently continues to increase. Plan for pt to continue at a frequency of once a week targeting aphasia and apraxia of speech for improved communication given pt progress and report. Reviewed with Goals,Progress Being Made,Home Exercise Program Patient Patient/Caregiver Good Understanding Plan Amount of Therapy 3 Months Recommended Frequency of Once a Week Treatment Length of Session 30 Minutes Therapeutic Contents Articulation Training,Client Education,Expressive Language Training,Home Exercise Program,Intelligibility ,Oral Motor Training,Receptive Language Training Provided Patient/ Home Exercise Program,Plan of Care,Questions/Concerns Caregiver Instruction Therapy Continue with Current Program Recommendations
--- NOTE | 2024-09-11 17:10 | ST.OPTN ---
Visit Care Team Role Provider Type Zulema Hughes DO Attending Provider Non-Staff Family Provider Primary Care Provider Referring Provider Address: [address] [place] [address], [place], [address] WHEEL BORER Treatment Note WHEEL BORER Treatment Note Start: 07/05/24 11:46 Freq: Status: Active Protocol: Document 09/11/24 16:53 SS (Rec: 09/11/24 17:10 SS Desktop) Speech Pathology Treatment Note Session Time Visit Start Time 13:45 Visit Stop Time 14:20 Total Visit Minutes 35 Visit Information Visit Number 10/[id number] Plan of Care Dates 07/05/24-10/05/24 Insurance [facility] (x15 visits then additional Information auth) Setting Treatment Setting Outpatient Care Visit Type Note Type Treatment Note Next Note Type Next Note Type Treatment Note General Information Patient History Janieely Santoyo is a 79-year-old female, who was 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 Huyen was in acute care and then received rehabilitation with physical therapy, occupational therapy, and speech-language pathology at [facility] from 06/11 to 06/15. 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 The evaluation was conducted to establish current measures of speech and language prior to initiating treatment. Huyen attended the evaluation with her daughter, Nani. Pt and her daughter reported previous swallowing difficulties necessitating an MBSS and modified diet. Her swallowing concerns have since resolved. Previous medical diagnoses include hypertension, anxiety, and depression . Before her stroke, pt enjoyed conversing with family and friends as well. She was independent with all IADLs . Her ability to participate in conversations and complete baseline IADLs is now limited due to reduced verbal/written communication. This often results in communication breakdowns and feelings of frustration and embarrassment for the pt. At the time of the evaluation, pt lives with her , who is her main communication partner. Pt and daughter reported word- finding difficulties, phonemic and semantic paraphasias , multiple attempts to say certain words, and slow rate of speech. They denied difficulty with receptive language skills, cognition, or voice. Pt expressed that her main goal for speech therapy is ?to return to my normal speech?. Subjective Identification Type Name Others Present Family Observations/Patient Pt was seen for session addressing aphasia and apraxia Presentation of speech post-CVA. Pt accompanied to the session by her . She was engaged and motivated throughout the session. Objective Short Term Goals 1. Pt will be able to repeat at the phrase level (two or more multisyllabic words) with 75% accuracy given WHEEL BORER model in order to increase verbal expression and overall communicative satisfaction (baseline 25%). 2. Pt and family will receive education re: communication partner training and ways to support communication (gesture, written, expression, yes/no questions, etc) in order to improve pt ability to communicate needs and wasn?t as well as complex thoughts and feelings. 3. Pt will complete auditory comprehension 2-step direction following tasks with 90% accuracy in order to improve receptive language during everyday tasks ( baseline 57%) 4. Pt will produce functional phrases with 90% accuracy independently in order to increase verbal expression and overall communicative satisfaction. [facility] Goals 1. Pt will produce spontaneous speech using word- finding and total communication strategies independently in order to improve communication effectiveness and satisfaction with own speech. 2. Pt will demonstrate improved ease of communication with family, friends, and medical providers, compared to baseline of 04/23, through memory education, adaptation, and application of strategies and tools to real life. Treatment Activities Continued conversational coaching and implemented verbal and nonverbal strategies in conversation. Implemented an articulatory-kinematic approach to target apraxia of speech with the goal of improving articulatory accuracy during structured speech activities and in conversation. Reviewed progress and provided home practice. Assessment Patient Response to Good Treatment Rehab Potential Good Impairments Expressive language,Receptive language,Speech Identified Progress Towards Good Progress Goals Assessment of Improving Overall Progress Assessment of Discussed communication and overall speech in the last Improvement week. Pt expressed she feels her speech accuracy has been improving and she had very minimal word-finding difficulties. She reported her has not asked her to repeat herself as often this week and she has been more confident when participating in conversations with family and friends. Implemented integral stimulation (watch me, listen to me, do as I do) and verbal feedback for articulatory placement during structured speech tasks and conversation as follows: Reading phrases (4-5 words): 95% accuracy, increasing to 100% accuracy. Creating sentences activity given target word: 90% accuracy, increasing to 100% accuracy. Errors consisted of consonant distortions and insertions. Pt benefited from occasional cueing to slow down and repeat words that contained phonemes that were distorted or substituted. During conversation, she benefited from cueing to increase awareness of productions (e.g., ?did that sound right to you?? or ?can you try that again??). She was able to implement strategies independently in about 65-70% of opportunities, increasing to 100% with cueing. She was able to correct most productions on the second try. Pt reported she is in process of scheduling appointment with ENT to follow up on sialorrhea and numbness around her left-sided incisions. Pt expressed that she has noticed intermittent dysphagia symptoms over the past two weeks, including globus sensation and sensation of solids sticking. She initially received swallowing treatment while inpatient, but her symptoms had resolved. Recommended pt complete MBSS for an objective assessment of potential pathophysiology. Pt agreeable and WHEEL BORER called PCP?s office requesting order. Pt participated well in today?s session. She will benefit from continued implementation of speech and communication strategies in conversation with reduced need for cueing and support. While her ability to do so in structured tasks has increased, she continues to struggle to implement strategies independently at the conversation level. Plan for pt to continue at a frequency of once a week targeting apraxia of speech for improved communication given pt progress and report to date. Reviewed with Goals,Progress Being Made,Home Exercise Program Patient Patient/Caregiver Good Understanding Plan Amount of Therapy 3 Months Recommended Frequency of Once a Week Treatment Length of Session 30 Minutes Therapeutic Contents Articulation Training,Client Education,Expressive Language Training,Home Exercise Program,Intelligibility ,Oral Motor Training,Receptive Language Training Provided Patient/ Home Exercise Program,Plan of Care,Questions/Concerns Caregiver Instruction Therapy Continue with Current Program Recommendations
--- NOTE | 2024-09-18 17:13 | ST.PROG ---
Visit Care Team Role Provider Type Zulema Hughes DO Attending Provider Non-Staff Family Provider Primary Care Provider Referring Provider Address: [address] [place] [address], [place], [address] BRIDGE CRANE OPERATOR Progress Note BRIDGE CRANE OPERATOR Treatment Note Start: 07/05/24 11:46 Freq: Status: Active Protocol: Document 09/18/24 16:48 SS (Rec: 09/18/24 17:12 SS Desktop) Speech Pathology Treatment Note Session Time Visit Start Time 13:45 Visit Stop Time 14:20 Total Visit Minutes 35 Visit Information Visit Number 11/28 Plan of Care Dates 07/05/24-10/05/24 Insurance [facility] (x15 visits then additional Information auth) Setting Treatment Setting Outpatient Care Visit Type Note Type Treatment Note Next Note Type Next Note Type Progress Note General Information Patient History Janie ?Antonia Santoyo is a 79-year-old female, who was 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 Huyen was in acute care and then received rehabilitation with physical therapy, occupational therapy, and speech-language pathology at [facility] from 06/11 to 06/15. 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 The evaluation was conducted to establish current measures of speech and language prior to initiating treatment. Huyen attended the evaluation with her daughter, Nani. Pt and her daughter reported previous swallowing difficulties necessitating an MBSS and modified diet. Her swallowing concerns have since resolved. Previous medical diagnoses include hypertension, anxiety, and depression . Before her stroke, pt enjoyed conversing with family and friends as well. She was independent with all IADLs . Her ability to participate in conversations and complete baseline IADLs is now limited due to reduced verbal/written communication. This often results in communication breakdowns and feelings of frustration and embarrassment for the pt. At the time of the evaluation, pt lives with her , who is her main communication partner. Pt and daughter reported word- finding difficulties, phonemic and semantic paraphasias , multiple attempts to say certain words, and slow rate of speech. They denied difficulty with receptive language skills, cognition, or voice. Pt expressed that her main goal for speech therapy is ?to return to my normal speech?. Subjective Identification Type Name Others Present Family Observations/Patient Pt was seen for session addressing aphasia and apraxia Presentation of speech post-CVA. Pt accompanied to the session by her . She was engaged and motivated throughout the session. Objective Short Term Goals 1. Pt will be able to repeat at the phrase level (two or more multisyllabic words) with 75% accuracy given BRIDGE CRANE OPERATOR model in order to increase verbal expression and overall communicative satisfaction (baseline 25%). 09/18/24: Goal met. Pt is able to repeat at the phrase level with 80-90% accuracy independently. 2. Pt and family will receive education re: communication partner training and ways to support communication (gesture, written, expression, yes/no questions, etc) in order to improve pt ability to communicate needs and wasn?t as well as complex thoughts and feelings. 09/18/24: Continue goal. Pt and spouse have benefited from education, but will continue to benefit from reinforcement to increase communicative success. 3. Pt will complete auditory comprehension 2-step direction following tasks with 90% accuracy in order to improve receptive language during everyday tasks ( baseline 57%) 09/18/24: Goal met. Pt able to complete 2-step directions with 100% accuracy. 4. Pt will produce functional phrases with 90% accuracy independently in order to increase verbal expression and overall communicative satisfaction. 09/18/24: Goal met. Pt produced functional phrases with 90-100% accuracy independently. 5. Pt will implement the compensatory strategy of circumlocution to repair communication breakdowns in daily conversation across 80% of opportunities. (NEW GOAL) 6. Pt will independently implement at least two compensatory speech strategies to increase speech intelligibility and accuracy in conversation. (NEW GOAL ) Mcfp Goals 1. Pt will produce spontaneous speech using word- finding and total communication strategies independently in order to improve communication effectiveness and satisfaction with own speech. 09/18/24: Continue goal 2. Pt will demonstrate improved ease of communication with family, friends, and medical providers, compared to baseline of 04/23, through memory education, adaptation, and application of strategies and tools to real life. 09/18/24: Continue goal. Treatment Activities Continued conversational coaching and implemented verbal and nonverbal strategies in conversation. Implemented an articulatory-kinematic approach to target apraxia of speech with the goal of improving articulatory accuracy during structured speech activities and in conversation. Reviewed progress and provided home practice. Completed progress note. BRIDGE CRANE OPERATOR to reach out to PCP re: MBSS order again. Assessment Patient Response to Good Treatment Rehab Potential Good Impairments Expressive language,Receptive language,Speech Identified Progress Towards Good Progress Goals Assessment of Improving Overall Progress Assessment of Discussed pt observations and concerns since the last Improvement treatment session. Pt reported she has been cognizant of slowing down when she speaks and repeating words when she produces them inaccurately. Her spouse reported he has noticed increased intelligibility and overall confidence during conversations. Implemented integral stimulation (watch me, listen to me, do as I do) and verbal feedback for articulatory placement during structured speech tasks and conversation as follows: Describing similarities and differences between two objects: 82% accuracy, increasing to 97% accuracy. During conversation, she benefited from cueing to increase awareness of productions (e.g., ?did that sound right to you?? or ?can you try that again??). She was able to implement strategies independently in about 70% of opportunities, but often had reduced awareness of her own speech. With verbal cueing, her accuracy increased to about 90% accuracy. Slowing her rate down and repeating words that were inaccurate continue to be the most beneficial strategies. Pt has improved in ability to follow multi-step directions and implementation of speech intelligibility strategies since the start of care. She endorses that she used to have to repeat herself multiple times during conversations and re-try the same word multiple times, but now has to do so less often. Pt judged to be about 90% intelligible during conversation with BRIDGE CRANE OPERATOR, with occasional errors in speech production and reduced intelligibility. She also continues to demonstrate occasional instances of word-finding difficulty. Pt will benefit from continued speech therapy services at a frequency of once a week to address apraxia and anomia in order to improve pt?s ability to communicate effectively with family, friends, and medical providers Progress for treatment is good given pt?s motivation to participate in treatment and improve, family support , and progress made since the start of care. plan is to continue targeting apraxia of speech and anomia at a frequency of once a week for 8-12 weeks. Reviewed with Goals,Progress Being Made,Home Exercise Program Patient Patient/Caregiver Good Understanding Plan Amount of Therapy 3 Months Recommended Frequency of Once a Week Treatment Length of Session 30 Minutes Therapeutic Contents Articulation Training,Client Education,Expressive Language Training,Home Exercise Program,Intelligibility ,Oral Motor Training,Receptive Language Training Provided Patient/ Home Exercise Program,Plan of Care,Questions/Concerns Caregiver Instruction Therapy Continue with Current Program Recommendations Visit Care Team Role Provider Type Zulema Hughes DO Attending Provider Non-Staff Family Provider Primary Care Provider Referring Provider Specialty: Medical Address: [address] [place] [address], [id number] Email:
--- NOTE | 2024-10-23 17:53 | ST.PROG ---
Visit Care Team Role Provider Type Zulema Hughes DO Attending Provider Non-Staff Family Provider Primary Care Provider Referring Provider Address: [address] [place] [address], [place], [address] [employer] Progress Note [employer] Treatment Note Start: 07/05/24 11:46 Freq: Status: Active Protocol: Document 10/23/24 17:41 MM (Rec: 10/23/24 17:53 MM Desktop) Speech Pathology Treatment Note Session Time Visit Start Time 13:45 Visit Stop Time 14:20 Total Visit Minutes 35 Visit Information Visit Number [id number] Plan of Care Dates 10/23/24-01/22/25 Insurance [facility] (x15 visits then additional Information auth) Setting Treatment Setting Outpatient Care Visit Type Note Type Treatment Note Next Note Type Next Note Type Progress Note General Information Patient History Janie ?Antonia Santoyo is a 79-year-old female, who was 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 Huyen was in acute care and then received rehabilitation with physical therapy, occupational therapy, and speech-language pathology at from 06/11 to 06/15. 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 The evaluation was conducted to establish current measures of speech and language prior to initiating treatment. Huyen attended the evaluation with her daughter, Nani. Pt and her daughter reported previous swallowing difficulties necessitating an MBSS and modified diet. Her swallowing concerns have since resolved. Previous medical diagnoses include hypertension, anxiety, and depression . Before her stroke, pt enjoyed conversing with family and friends as well. She was independent with all IADLs . Her ability to participate in conversations and complete baseline IADLs is now limited due to reduced verbal/written communication. This often results in communication breakdowns and feelings of frustration and embarrassment for the pt. At the time of the evaluation, pt lives with her , who is her main communication partner. Pt and daughter reported word- finding difficulties, phonemic and semantic paraphasias , multiple attempts to say certain words, and slow rate of speech. They denied difficulty with receptive language skills, cognition, or voice. Pt expressed that her main goal for speech therapy is ?to return to my normal speech?. Subjective Identification Type Name Others Present Family Observations/Patient Pt arrived on time, unaccompanied to therapy Presentation appointment. Pt was seen for session addressing aphasia and apraxia of speech post-CVA. She was engaged and motivated throughout the session. POC updated. Objective Short Term Goals 1. Pt will be able to repeat at the phrase level (two or more multisyllabic words) with 75% accuracy given [employer] model in order to increase verbal expression and overall communicative satisfaction (baseline 25%). 09/18/24: Goal met. Pt is able to repeat at the phrase level with 80-90% accuracy independently. 10/23/24: Goal previously met. 2. Pt and family will receive education re: communication partner training and ways to support communication (gesture, written, expression, yes/no questions, etc) in order to improve pt ability to communicate needs and wasn?t as well as complex thoughts and feelings. 09/18/24: Continue goal. Pt and spouse have benefited from education, but will continue to benefit from reinforcement to increase communicative success. 10/23/24: Continue goal. 3. Pt will complete auditory comprehension 2-step direction following tasks with 90% accuracy in order to improve receptive language during everyday tasks ( baseline 57%) 09/18/24: Goal met. Pt able to complete 2-step directions with 100% accuracy. 10/23/24: Goal previously met. 4. Pt will produce functional phrases with 90% accuracy independently in order to increase verbal expression and overall communicative satisfaction. 09/18/24: Goal met. Pt produced functional phrases with 90-100% accuracy independently. 10/23/24: Goal previously met. 5. Pt will implement the compensatory strategy of circumlocution to repair communication breakdowns in daily conversation across 80% of opportunities. 10/23/24: Continue goal. Pt utilizes circumlocution to repair communications breakdowns, but will continue to benefit from reinforcement to increase communicative success. 6. Pt will independently implement at least two compensatory speech strategies to increase speech intelligibility and accuracy in conversation. 10/23/24: Continue goal. Pt utilizes slowing down and repetition to increase speech intelligibility, but will continue to benefit from reinforcement to increase communicative success. Correction Goals 1. Pt will produce spontaneous speech using word- finding and total communication strategies independently in order to improve communication effectiveness and satisfaction with own speech. 09/18/24: Continue goal 10/23/24: Continue goal 2. Pt will demonstrate improved ease of communication with family, friends, and medical providers, compared to baseline of 04/23, through memory education, adaptation, and application of strategies and tools to real life. 09/18/24: Continue goal. 10/23/24: Continue goal Treatment Activities Reviewed word-finding strategies and compensatory speech strategies, practiced utilizing them at the conversation level. Reviewed progress and encouraged continued home practice. Education re: BEFAST. Discussed pt's concern re: swallowing and encouraged pt to call [facility] to schedule MBSS to guide POC. Completed progress note. Assessment Patient Response to Good Treatment Rehab Potential Good Impairments Expressive language,Receptive language,Speech Identified Progress Towards Good Progress Goals Assessment of Improving Overall Progress Assessment of Discussed pt observations and concerns since the last Improvement treatment session. Pt reported she has been cognizant of slowing down when she speaks and repeating words when she produces them inaccurately. During conversation, she benefited from cueing to increase awareness of productions (e.g., ?did that sound right to you?? or ?can you try that again??). She was able to implement strategies independently in about 80% of opportunities, but occasionally had reduced awareness of her own speech. With verbal cueing, her accuracy increased to about 100% accuracy. Slowing her rate down and repeating words that were inaccurate continue to be the most beneficial strategies. Pt has improved in ability to follow multi-step directions and implementation of speech intelligibility strategies since the start of care. She endorses that she used to have to repeat herself multiple times during conversations and re-try the same word multiple times, but now has to do so less often. Pt judged to be about 90-100% intelligible during conversation with [employer], with occasional errors in speech production and reduced intelligibility. She also continues to demonstrate occasional instances of word-finding difficulty. [employer] encouraged pt to utilize circumlocution as word-finding strategy to reduce communicative breakdowns and frustration as pt intermittently attempted to move on ( anyway) when exhibiting word-finding difficulty. Pt verbalized concern re: stroke signs/symptoms; ST reviewed signs/symptoms of stroke via BEFAST acronym and provided pt with handout. Pt verbalized understanding of signs/symptoms as evidenced by teach- back. Pt verbalized concern re: swallowing and difficulty obtaining MBSS order/scheduling. Pt reported her MD confirmed they sent the order for MBSS. ST encouraged pt to call [facility] at [facility] to schedule MBSS as soon as possible. ST discussed how MBSS will help to guide POC re: swallowing tx if indicated. Pt will benefit from continued speech therapy services at a frequency of once a week to address apraxia and anomia in order to improve pt?s ability to communicate effectively with family, friends, and medical providers . Progress for treatment is good given pt?s motivation to participate in treatment and improve, family support , and progress made since the start of care. Plan is to continue targeting apraxia of speech and anomia at a frequency of once a week for 8-12 weeks. Plan to have pt participate in MBSS to guide POC re: swallowing; pt instructed to follow up with [facility] for scheduling. Reviewed with Goals,Progress Being Made,Home Exercise Program Patient Patient/Caregiver Good Understanding Plan Amount of Therapy 3 Months Recommended Frequency of Once a Week Treatment Length of Session 30 Minutes Therapeutic Contents Articulation Training,Client Education,Expressive Language Training,Home Exercise Program,Intelligibility ,Oral Motor Training,Receptive Language Training Provided Patient/ Home Exercise Program,Plan of Care,Questions/Concerns Caregiver Instruction Therapy Continue with Current Program Recommendations Visit Care Team Role Provider Type Zulema Hughes DO Attending Provider Non-Staff Family Provider Primary Care Provider Referring Provider Specialty: Medical Address: [address] [place] [address], [id number] Email:
--- NOTE | 2024-10-23 17:54 | ST.OPPOC ---
Addendum entered and electronically signed by Anita Crowe 10/23/24 17:56: POC faxed to . 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 Huyen was in acute care and then received rehabilitation with physical therapy, occupational therapy, and speech- language pathology at [facility] from 06/11 to . 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 The evaluation was conducted to establish current measures of speech and language prior to initiating treatment. Huyen attended the evaluation with her daughter, Nani . Pt and her daughter reported previous swallowing difficulties necessitating an MBSS and modified diet. Her swallowing concerns have since resolved. Previous medical diagnoses include hypertension, anxiety, and depression. Before her stroke, pt enjoyed conversing with family and friends as well. She was independent with all IADLs. Her ability to participate in conversations and complete baseline IADLs is now limited due to reduced verbal/written communication. This often results in communication breakdowns and feelings of frustration and embarrassment for the pt. At the time of the evaluation, pt lives with her , who is her main communication partner. Pt and daughter reported word-finding difficulties, phonemic and semantic paraphasias, multiple attempts to say certain words, and slow rate of speech. They denied difficulty with receptive language skills, cognition, or voice. Pt expressed that her main goal for speech therapy is ?to return to my normal speech?. Impairments Identified Expressive language,Receptive language,Speech Progress Towards Goals Good Progress Short Term Goals 1. Pt will be able to repeat at the phrase level (two or more multisyllabic words) with 75% accuracy given [employer] model in order to increase verbal expression and overall communicative satisfaction (baseline 25%). 09/18/24: Goal met. Pt is able to repeat at the phrase level with 80-90% accuracy independently. 10/23/24: Goal previously met. 2. Pt and family will receive education re: communication partner training and ways to support communication (gesture, written, expression, yes/no questions, etc) in order to improve pt ability to communicate needs and wasn ?t as well as complex thoughts and feelings. 09/18/24: Continue goal. Pt and spouse have benefited from education, but will continue to benefit from reinforcement to increase communicative success. 10/23/24: Continue goal. 3. Pt will complete auditory comprehension 2- step direction following tasks with 90% accuracy in order to improve receptive language during everyday tasks (baseline 57%) 09/18/24: Goal met. Pt able to complete 2-step directions with 100% accuracy. 10/23/24: Goal previously met. 4. Pt will produce functional phrases with 90% accuracy independently in order to increase verbal expression and overall communicative satisfaction. 09/18/24: Goal met. Pt produced functional phrases with 90-100% accuracy independently. 10/23/24: Goal previously met. 5. Pt will implement the compensatory strategy of circumlocution to repair communication breakdowns in daily conversation across 80% of opportunities. 10/23/24: Continue goal. Pt utilizes circumlocution to repair communications breakdowns, but will continue to benefit from reinforcement to increase communicative success. 6. Pt will independently implement at least two compensatory speech strategies to increase speech intelligibility and accuracy in conversation. 10/23/24: Continue goal. Pt utilizes slowing down and repetition to increase speech intelligibility, but will continue to benefit from reinforcement to increase communicative success. Layer Up Goals 1. Pt will produce spontaneous speech using word -finding and total communication strategies independently in order to improve communication effectiveness and satisfaction with own speech. 09/18/24: Continue goal 10/23/24: Continue goal 2. Pt will demonstrate improved ease of communication with family, friends, and medical providers, compared to baseline of 04/23, through memory education, adaptation, and application of strategies and tools to real life. 09/18/24: Continue goal. 10/23/24: Continue goal Comment: Electronically Signed by: MILAN Crowe 10/23/24 8277 If you are in agreement with this Plan of Care, please return a signed and dated copy. I have reviewed this Plan of Care and certify that the skilled therapy services above are required to meet the patient?s needs. Physician Signature Date Printed Name and Credentials Clinical Instructor Signature Printed Name and Credentials
--- NOTE | 2024-10-29 13:30 | ST-OP ANOTE ---
Physical, Occupational & Speech Therapy At [facility] Speech Therapy Note Referrals coordinator reached out to [employer] stating order has been placed for upper GI barium study vs. modified barium swallow study as requested by [employer]. [employer] left message with PCP's medical team (Zulema Hughes) and sent a fax requesting correct order be placed for MBSS with [employer] to assess oropharyngeal phases of swallow. [employer] to continue to follow up as needed.
--- NOTE | 2024-10-30 15:58 | ST.OPTN ---
Visit Care Team Role Provider Type Zulema Hughes DO Attending Provider Non-Staff Family Provider Primary Care Provider Referring Provider Address: [address] [place] [address], [place], [address] WATER CONTROL SUPERVISOR Treatment Note WATER CONTROL SUPERVISOR Treatment Note Start: 07/05/24 11:46 Freq: Status: Active Protocol: Document 10/30/24 14:22 SS (Rec: 10/30/24 14:39 SS Desktop) Speech Pathology Treatment Note Session Time Visit Start Time 13:40 Visit Stop Time 14:20 Total Visit Minutes 40 Visit Information Visit Number Plan of Care Dates 10/23/24-01/22/25 Insurance [facility] (x15 visits then additional Information auth) Setting Treatment Setting Outpatient Care Visit Type Note Type Treatment Note Next Note Type Next Note Type Treatment Note General Information Patient History Janieely Santoyo is a 79-year-old female, who was 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 Huyen was in acute care and then received rehabilitation with physical therapy, occupational therapy, and speech-language pathology at [facility] from 06/11 to 06/15. 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 The evaluation was conducted to establish current measures of speech and language prior to initiating treatment. Huyen attended the evaluation with her daughter, Nani. Pt and her daughter reported previous swallowing difficulties necessitating an MBSS and modified diet. Her swallowing concerns have since resolved. Previous medical diagnoses include hypertension, anxiety, and depression . Before her stroke, pt enjoyed conversing with family and friends as well. She was independent with all IADLs . Her ability to participate in conversations and complete baseline IADLs is now limited due to reduced verbal/written communication. This often results in communication breakdowns and feelings of frustration and embarrassment for the pt. At the time of the evaluation, pt lives with her , who is her main communication partner. Pt and daughter reported word- finding difficulties, phonemic and semantic paraphasias , multiple attempts to say certain words, and slow rate of speech. They denied difficulty with receptive language skills, cognition, or voice. Pt expressed that her main goal for speech therapy is ?to return to my normal speech?. Subjective Identification Type Name Others Present Family Observations/Patient Pt arrived on time, unaccompanied to therapy Presentation appointment. Pt was seen for session addressing aphasia and apraxia of speech post-CVA. She was engaged and motivated throughout the session. Objective Short Term Goals 1. Pt will be able to repeat at the phrase level (two or more multisyllabic words) with 75% accuracy given WATER CONTROL SUPERVISOR model in order to increase verbal expression and overall communicative satisfaction (baseline 25%). 09/18/24: Goal met. Pt is able to repeat at the phrase level with 80-90% accuracy independently. 10/23/24: Goal previously met. 2. Pt and family will receive education re: communication partner training and ways to support communication (gesture, written, expression, yes/no questions, etc) in order to improve pt ability to communicate needs and wasn?t as well as complex thoughts and feelings. 09/18/24: Continue goal. Pt and spouse have benefited from education, but will continue to benefit from reinforcement to increase communicative success. 10/23/24: Continue goal. 3. Pt will complete auditory comprehension 2-step direction following tasks with 90% accuracy in order to improve receptive language during everyday tasks ( baseline 57%) 09/18/24: Goal met. Pt able to complete 2-step directions with 100% accuracy. 10/23/24: Goal previously met. 4. Pt will produce functional phrases with 90% accuracy independently in order to increase verbal expression and overall communicative satisfaction. 09/18/24: Goal met. Pt produced functional phrases with 90-100% accuracy independently. 10/23/24: Goal previously met. 5. Pt will implement the compensatory strategy of circumlocution to repair communication breakdowns in daily conversation across 80% of opportunities. 10/23/24: Continue goal. Pt utilizes circumlocution to repair communications breakdowns, but will continue to benefit from reinforcement to increase communicative success. 6. Pt will independently implement at least two compensatory speech strategies to increase speech intelligibility and accuracy in conversation. 10/23/24: Continue goal. Pt utilizes slowing down and repetition to increase speech intelligibility, but will continue to benefit from reinforcement to increase communicative success. Slide Developer Goals 1. Pt will produce spontaneous speech using word- finding and total communication strategies independently in order to improve communication effectiveness and satisfaction with own speech. 09/18/24: Continue goal 10/23/24: Continue goal 2. Pt will demonstrate improved ease of communication with family, friends, and medical providers, compared to baseline of 04/23, through memory education, adaptation, and application of strategies and tools to real life. 09/18/24: Continue goal. 10/23/24: Continue goal Treatment Activities Reviewed word-finding strategies and compensatory motor speech strategies and implemented them during unstructured conversation level. Reviewed progress with HEP and encouraged continued home practice. Discussed progress with scheduling MBSS. WATER CONTROL SUPERVISOR to call [facility] to clarify type of study given two different referrals received. Assessment Patient Response to Good Treatment Rehab Potential Good Impairments Expressive language,Receptive language,Speech Identified Progress Towards Good Progress Goals Assessment of Improving Overall Progress Assessment of Discussed pt observations and concerns since the last Improvement treatment session. Pt reported she continues to note improvement in her speech accuracy. She expressed she continues to ?get stuck? on words and often experiences instances anomia. Reviewed recommended motor speech strategies, including slower rate, over-articulation, and repeating inaccurate productions to increase awareness. Pt with excellent recall of these strategies . WATER CONTROL SUPERVISOR provided education re: compensatory strategies for word-finding, including first would/letter, circumlocution, gestures, and use similar words. Pt expressed understanding, and stated she has difficulty recalling to use these strategies and often gets frustrated and wants to move on. Explained importance of retrieving target words to strengthen neural networks and promote participation back and forth conversation and conveying message. During conversation, pt was able to implement strategies independently in about 80% of opportunities. She occasionally demonstrated distortions and insertion of vowels with minimal awareness. Given verbal cueing to increase awareness of productions (e.g ., ?did that sound right to you?? or ?can you try that again? I?m not sure I understood?), accuracy increased to about 90% accuracy. Pt was successful in slowing her rate of speech and re-attempting productions. During occasional instances of word-finding difficulty, pt often attempted to continue the conversations without retrieving target word. She was often successful in retrieving the word following WATER CONTROL SUPERVISOR verbal cueing to select a compensatory strategy and reminder to reference handout with strategies listed as needed for recall. Pt expressed ongoing difficulty scheduling MBSS. She stated that [facility] had received an upper GI order, rather than an MBSS. WATER CONTROL SUPERVISOR had left a message with PCP office requesting they send correct order. Pt also expressed [facility] in [place] had received orders for upper GI and MBSS, but needed WATER CONTROL SUPERVISOR to follow up and confirm correct order. WATER CONTROL SUPERVISOR called DI and confirmed order for MBSS; they will call pt back with further directions to schedule. Continue to recommend completion of MBSS to guide POC re: swallowing tx if indicated. Pt continues to make excellent progress with use of motor speech strategies in conversation, though her awareness of her own productions is not consistent yet. She will benefit from additional reinforcement to use word-finding strategies in conversation with reduced need for support/cueing. WATER CONTROL SUPERVISOR to discuss appropriateness of [employer] with colleague given pt questions re: oral pocketing and sensation affecting speech as this WATER CONTROL SUPERVISOR is not certified. Continue current protocol at frequency of once a week given pt progress and report to date. Reviewed with Goals,Progress Being Made,Home Exercise Program Patient Patient/Caregiver Good Understanding Plan Amount of Therapy 3 Months Recommended Frequency of Once a Week Treatment Length of Session 30 Minutes Therapeutic Contents Articulation Training,Client Education,Expressive Language Training,Home Exercise Program,Intelligibility ,Oral Motor Training,Receptive Language Training Provided Patient/ Home Exercise Program,Plan of Care,Questions/Concerns Caregiver Instruction Therapy Continue with Current Program Recommendations
--- NOTE | 2024-11-06 15:08 | ST.OPTN ---
Visit Care Team Role Provider Type Zulema Hughes DO Attending Provider Non-Staff Family Provider Primary Care Provider Referring Provider Address: [address] [place] [address], [place], [address] RETAIL COORDINATOR Treatment Note RETAIL COORDINATOR Treatment Note Start: 07/05/24 11:46 Freq: Status: Active Protocol: Document 11/06/24 14:53 SS (Rec: 11/06/24 15:08 SS Desktop) Speech Pathology Treatment Note Session Time Visit Start Time 13:40 Visit Stop Time 14:25 Total Visit Minutes 45 Visit Information Visit Number Plan of Care Dates 10/23/24-01/22/25 Insurance [facility] (x15 visits then additional Information auth) Setting Treatment Setting Outpatient Care Visit Type Note Type Treatment Note Next Note Type Next Note Type Treatment Note General Information Patient History Janieely Santoyo is a 79-year-old female, who was 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 Huyen was in acute care and then received rehabilitation with physical therapy, occupational therapy, and speech-language pathology at [facility] from 06/11 to 06/15. 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 The evaluation was conducted to establish current measures of speech and language prior to initiating treatment. Huyen attended the evaluation with her daughter, Nani. Pt and her daughter reported previous swallowing difficulties necessitating an MBSS and modified diet. Her swallowing concerns have since resolved. Previous medical diagnoses include hypertension, anxiety, and depression . Before her stroke, pt enjoyed conversing with family and friends as well. She was independent with all IADLs . Her ability to participate in conversations and complete baseline IADLs is now limited due to reduced verbal/written communication. This often results in communication breakdowns and feelings of frustration and embarrassment for the pt. At the time of the evaluation, pt lives with her , who is her main communication partner. Pt and daughter reported word- finding difficulties, phonemic and semantic paraphasias , multiple attempts to say certain words, and slow rate of speech. They denied difficulty with receptive language skills, cognition, or voice. Pt expressed that her main goal for speech therapy is ?to return to my normal speech?. Subjective Identification Type Name Others Present Family Observations/Patient Pt arrived on time, accompanied by her spouse to the Presentation therapy appointment. Pt was seen for session addressing aphasia and apraxia of speech post-CVA. She was engaged and motivated throughout the session. Objective Short Term Goals 1. Pt will be able to repeat at the phrase level (two or more multisyllabic words) with 75% accuracy given RETAIL COORDINATOR model in order to increase verbal expression and overall communicative satisfaction (baseline 25%). 09/18/24: Goal met. Pt is able to repeat at the phrase level with 80-90% accuracy independently. 10/23/24: Goal previously met. 2. Pt and family will receive education re: communication partner training and ways to support communication (gesture, written, expression, yes/no questions, etc) in order to improve pt ability to communicate needs and wasn?t as well as complex thoughts and feelings. 09/18/24: Continue goal. Pt and spouse have benefited from education, but will continue to benefit from reinforcement to increase communicative success. 10/23/24: Continue goal. 3. Pt will complete auditory comprehension 2-step direction following tasks with 90% accuracy in order to improve receptive language during everyday tasks ( baseline 57%) 09/18/24: Goal met. Pt able to complete 2-step directions with 100% accuracy. 10/23/24: Goal previously met. 4. Pt will produce functional phrases with 90% accuracy independently in order to increase verbal expression and overall communicative satisfaction. 09/18/24: Goal met. Pt produced functional phrases with 90-100% accuracy independently. 10/23/24: Goal previously met. 5. Pt will implement the compensatory strategy of circumlocution to repair communication breakdowns in daily conversation across 80% of opportunities. 10/23/24: Continue goal. Pt utilizes circumlocution to repair communications breakdowns, but will continue to benefit from reinforcement to increase communicative success. 6. Pt will independently implement at least two compensatory speech strategies to increase speech intelligibility and accuracy in conversation. 10/23/24: Continue goal. Pt utilizes slowing down and repetition to increase speech intelligibility, but will continue to benefit from reinforcement to increase communicative success. Fdc Goals 1. Pt will produce spontaneous speech using word- finding and total communication strategies independently in order to improve communication effectiveness and satisfaction with own speech. 09/18/24: Continue goal 10/23/24: Continue goal 2. Pt will demonstrate improved ease of communication with family, friends, and medical providers, compared to baseline of 04/23, through memory education, adaptation, and application of strategies and tools to real life. 09/18/24: Continue goal. 10/23/24: Continue goal Treatment Activities Reviewed word-finding strategies and compensatory motor speech strategies at the beginning of the session. Implemented strategies during conversation. Reviewed progress with HEP and encouraged continued home practice. Discussed progress with scheduling MBSS. As [facility] has not received order yet, RETAIL COORDINATOR called PCP's office. Assessment Patient Response to Good Treatment Rehab Potential Good Impairments Expressive language,Receptive language,Speech Identified Progress Towards Good Progress Goals Assessment of Improving Overall Progress Assessment of Discussed pt observations and concerns since the last Improvement treatment session. Pt expressed her speech has been slowly improving and communication partners rarely ask her to repeat, though she does notice imprecision at times, particularly when stressed or overwhelmed. Reviewed recommended motor speech strategies and compensatory strategies for word-finding. Pt demonstrated good recall of strategies, and recalled the following: slow rate, pausing, describe, state category/topic, and use similar words. During conversation, pt was approximately 90% intelligible to RETAIL COORDINATOR. She occasionally demonstrated distortions and insertion of vowels, but was often able to re-try and produce the word accurately on second try. She benefited from intermittent verbal cueing to increase awareness of productions, with intelligibility increasing to 100%. Pt demonstrated occasional instances of anomia, though she had difficulty retrieving target words in the moment, instead saying ? it doesn?t matter? or ?anyway?. Given min verbal cueing to select a compensatory strategy, she was able to successfully retrieve all target words and continue the conversation. Pt expressed MBSS has not been scheduled yet. Per [facility], order for MBSS not received from PCP. RETAIL COORDINATOR called PCP office and left a detailed message with medical team. Continue to recommend completion of MBSS to guide POC re: swallowing treatment as indicated. Additionally, encourage pt to ask her PCP for additional insurance authorization, as current authorization is ending. Pt agreeable. Pt continues to make good progress with use of motor speech strategies in conversation. However, she still has difficulty with implementing word-finding strategies independently at the conversation level, and will benefit from reinforcement to increase successful conversational interactions and reduce communication breakdowns. Continue current protocol at frequency of once a week given pt progress and report to date. Reviewed with Goals,Progress Being Made,Home Exercise Program Patient Patient/Caregiver Good Understanding Plan Amount of Therapy 3 Months Recommended Frequency of Once a Week Treatment Length of Session 30 Minutes Therapeutic Contents Articulation Training,Client Education,Expressive Language Training,Home Exercise Program,Intelligibility ,Oral Motor Training,Receptive Language Training Provided Patient/ Home Exercise Program,Plan of Care,Questions/Concerns Caregiver Instruction Therapy Continue with Current Program Recommendations
--- NOTE | 2025-01-02 10:00 | ST.OPDS ---
Visit Care Team Role Provider Type Zulema Hughes DO Attending Provider Non-Staff Family Provider Primary Care Provider Referring Provider Address: [address] [place] [address], [place], [address] SURVEY RESEARCH ANALYST Treatment Note SURVEY RESEARCH ANALYST Treatment Note Start: 07/05/24 11:46 Freq: Status: Active Protocol: Document 01/02/25 09:48 SS (Rec: 01/02/25 10:00 SS DESKTOP) Speech Pathology Treatment Note Visit Information Visit Number [id number] Plan of Care Dates 10/23/24-01/22/25 Insurance [facility] (x15 visits then additional Information auth) Setting Treatment Setting Outpatient Care Visit Type Note Type Discharge Summary General Information Patient History Janie Santoyo is a 79-year-old female, who was 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 Huyen was in acute care and then received rehabilitation with physical therapy, occupational therapy, and speech-language pathology at [facility] from 06/11 to 06/15. 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 The evaluation was conducted to establish current measures of speech and language prior to initiating treatment. Huyen attended the evaluation with her daughter, Nain. Pt and her daughter reported previous swallowing difficulties necessitating an MBSS and modified diet. Her swallowing concerns have since resolved. Previous medical diagnoses include hypertension, anxiety, and depression . Before her stroke, pt enjoyed conversing with family and friends as well. She was independent with all IADLs . Her ability to participate in conversations and complete baseline IADLs is now limited due to reduced verbal/written communication. This often results in communication breakdowns and feelings of frustration and embarrassment for the pt. At the time of the evaluation, pt lives with her , who is her main communication partner. Pt and daughter reported word- finding difficulties, phonemic and semantic paraphasias , multiple attempts to say certain words, and slow rate of speech. They denied difficulty with receptive language skills, cognition, or voice. Pt expressed that her main goal for speech therapy is ?to return to my normal speech?. Objective Short Term Goals 1. Pt will be able to repeat at the phrase level (two or more multisyllabic words) with 75% accuracy given SURVEY RESEARCH ANALYST model in order to increase verbal expression and overall communicative satisfaction (baseline 25%). 09/18/24: Goal met. Pt is able to repeat at the phrase level with 80-90% accuracy independently. 10/23/24: Goal previously met. 01/02/25: Goal met. 2. Pt and family will receive education re: communication partner training and ways to support communication (gesture, written, expression, yes/no questions, etc) in order to improve pt ability to communicate needs and wasn?t as well as complex thoughts and feelings. 09/18/24: Continue goal. Pt and spouse have benefited from education, but will continue to benefit from reinforcement to increase communicative success. 10/23/24: Continue goal. 01/02/25: Goal met. 3. Pt will complete auditory comprehension 2-step direction following tasks with 90% accuracy in order to improve receptive language during everyday tasks ( baseline 57%) 09/18/24: Goal met. Pt able to complete 2-step directions with 100% accuracy. 10/23/24: Goal previously met. 01/02/25: Goal met. 4. Pt will produce functional phrases with 90% accuracy independently in order to increase verbal expression and overall communicative satisfaction. 09/18/24: Goal met. Pt produced functional phrases with 90-100% accuracy independently. 10/23/24: Goal previously met. 01/02/25: Goal met. 5. Pt will implement the compensatory strategy of circumlocution to repair communication breakdowns in daily conversation across 80% of opportunities. 10/23/24: Continue goal. Pt utilizes circumlocution to repair communications breakdowns, but will continue to benefit from reinforcement to increase communicative success. 01/02/25: Goal met. 6. Pt will independently implement at least two compensatory speech strategies to increase speech intelligibility and accuracy in conversation. 10/23/24: Continue goal. Pt utilizes slowing down and repetition to increase speech intelligibility, but will continue to benefit from reinforcement to increase communicative success. 01/02/25: Goal met. [employer] Superintendent Goals 1. Pt will produce spontaneous speech using word- finding and total communication strategies independently in order to improve communication effectiveness and satisfaction with own speech. 09/18/24: Continue goal 10/23/24: Continue goal 01/02/25: Goal met. 2. Pt will demonstrate improved ease of communication with family, friends, and medical providers, compared to baseline of 04/23, through memory education, adaptation, and application of strategies and tools to real life. 09/18/24: Continue goal. 10/23/24: Continue goal 01/02/25: Goal met. 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 She has attended at a frequency of once a week and has been motivated and engaged throughout. Assessment Patient Response to Good Treatment Rehab Potential Good Impairments Expressive language,Receptive language,Speech Identified Progress Towards Good Progress,Appropriate for Discharge Goals Assessment of Improving Overall Progress Assessment of Treatment included conversational coaching and Improvement implementation of verbal and nonverbal strategies in conversation. Implemented an articulatory-kinematic approach to target apraxia of speech with the goal of improving articulatory accuracy during structured speech activities and in conversation. Additionally, treatment targeted education and implementation of compensatory strategies for word-finding and following complex directions. Over the course of treatment, pt has improved in ability to follow multi-step directions and implementation of speech intelligibility strategies since the start of care. She endorses that she used to have to repeat herself multiple times during conversations and re-try the same word multiple times, but now has to do so less often. During the last few treatment sessions, pt judged to be about 90% intelligible during conversation with SURVEY RESEARCH ANALYST, with occasional errors in speech production and reduced intelligibility. She also continues to demonstrate occasional instances of word-finding difficulty. During last treatment session, recommended pt complete HEP a few times a week to maintain the gains she had made with speech therapy services. The plan is to discharge the pt from speech therapy services as she has met her LTG and STG goals targeting apraxia and aphasia. During the last several treatment sessions, SURVEY RESEARCH ANALYST assisted pt in coordinating scheduling an MBSS to assess swallowing function as pt has expressed she had noted new impairments. SURVEY RESEARCH ANALYST called pt to discuss progress with scheduling MBSS and initiating swallowing treatment, with no reply. Account discharged as pt has not been seen for treatment for two months. Recommend she request a referral from her PCP if she would like to initiate swallowing treatment services. Reviewed with Goals,Progress Being Made,Home Exercise Program Patient Patient/Caregiver Good Understanding Plan Amount of Therapy No Further Therapy Recommended Frequency of No Further Therapy Treatment Therapeutic Contents Articulation Training,Client Education,Expressive Language Training,Home Exercise Program,Intelligibility ,Oral Motor Training,Receptive Language Training Provided Patient/ Home Exercise Program,Plan of Care,Questions/Concerns Caregiver Instruction Therapy Discharge to Home Exercise Program,Discharge from Recommendations Speech Therapy
== END 2025-01-03 09:53 | disposition home or self-care (01) ==
LOC: SP 13:45
PROVIDERS: Family Provider Family Medicine; PCP Family Medicine; Referring Provider Family Medicine; Visit Provider Family Medicine
DX: I63.512 Cerebral infarction due to unspecified occlusion or stenosis of left middle cerebral artery (principal)
CPT/HCPCS: 92507; 96105